=== PATIENT | male | born 1965 | race Caucasian/White ===

== ENCOUNTER 2019-01-01 19:39 | Observation (INO) ==
[2019-01-01 20:34] LABS: Basophils % 0.4 %; Eosinophils # 0.2 K/mcL (0.0-0.6); Eosinophils % 2.8 %; Hematocrit 45.5 % (37.5-50.1); Hemoglobin 15.1 g/dL (12.9-16.9); Immature Granulocytes % 0.5 % (0-4); Lymphocytes # 2.5 K/mcL (0.6-4.6); Lymphocytes % 30.3 %; Mean Corpuscular HGB Conc 33.2 g/dL (31.6-35.5); Mean Corpuscular Volume 99.3 fL (83.0-100.0); Mean Platelet Volume 9.5 fL (9.4-12.4); Monocytes # 0.6 K/mcL (0.0-1.3); Monocytes % 6.9 %; Platelet Count 244 K/mcL (140-400); Red Blood Count 4.58 M/mcL (4.19-5.50); Red Cell Distribution Width 13.5 % (11.5-14.5); Segmented Neutrophils % 59.1 %; White Blood Count 8.4 K/mcL (4.3-11.1)
[2019-01-01 20:56] LABS: Acetaminophen < 10 mcg/mL (10-20); Alanine Aminotransferase 16 Units/L (7-52); Albumin 4.4 g/dL (3.5-5.7); Albumin/Globulin Ratio 1.3 (1.1-2.2); Alkaline Phosphatase 109 Units/L (34-104); Aspartate Amino Transferase 29 Units/L (13-39); BUN/Creatinine Ratio 8 (6-26); Bilirubin,Total 0.5 mg/dL (0.3-1.0); Blood Urea Nitrogen 6 mg/dL (6-20); Calcium 9.4 mg/dL (8.6-10.3); Carbon Dioxide 21 mEq/L (23-29); Chloride 91 mEq/L (98-107); Ethanol 202 mg/dL (Less than 10); Globulin 3.4 g/dL (2.4-3.5); Glucose 79 mg/dL (70-105); Osmolality,Calculated 263 (280-300); Salicylate 15.3 mg/dL (15.0-30.0); Sodium 128 mEq/L (136-145); Total Protein 7.8 g/dL (6.4-8.9); Troponin I < 0.03 ng/mL (< 0.04); eGFR For African Americans > 60 (> 60); eGFR For Non-African Americans > 60 (> 60)
[2019-01-01 21:02] LABS: Bilirubin,Urine Negative (Negative); Blood,Urine Negative (Negative); Clarity,Urine Clear (Clear); Color,Urine Yellow (Yellow); Glucose,Urine (UA) Normal (Normal); Ketones,Urine Negative (Negative); Leukocyte Esterase,Urine Negative (Negative); Nitrite,Urine Negative (Negative); Protein,Urine Trace mg/dL (Neg-Trace); Specific Gravity,Urine 1.006 (1.010-1.025); Urobilinogen,Urine Normal (Normal)
[2019-01-01 21:11] LABS: Amphetamine Screen,Urine Negative ng/mL (Cutoff=1000); Barbiturate Screen,Urine Negative ng/mL (Cutoff=200); Benzodiazepines Screen,Urine Negative ng/mL (Cutoff=200); Cannabinoid Screen,Urine Negative ng/mL (Cutoff = 50); Cocaine Screen,Urine Negative ng/mL (Cutoff= 300); Opiate Screen,Urine Negative ng/mL (Cutoff=300); Phencyclidine Screen,Urine Negative ng/mL (Cutoff=25)
[2019-01-01] MEDS ORDERED: 0.9 % Sodium Chloride 1,000 ML IVC SCH (22:45)
[2019-01-01] MEDS ORDERED: *HR* LORazepam 2 MG/ML VIAL IVP PRN ×2 (22:45)
[2019-01-01] MEDS ORDERED: *HR* Promethazine 25 MG/ML VIAL IVP PRN (22:45)
[2019-01-02] MEDS ORDERED: Acetaminophen 325 MG TABLET PO SCH
[2019-01-02] MEDS ORDERED: Acetaminophen 325 MG TABLET PO PRN (00:31)
[2019-01-02] MEDS: *HR* Heparin 5,000 UNIT/ML VIAL SQ SCH ×2 (05:08→16:57)
[2019-01-02 07:49] LABS: BUN/Creatinine Ratio 8 (6-26); Blood Urea Nitrogen 6 mg/dL (6-20); Calcium 9.2 mg/dL (8.6-10.3); Carbon Dioxide 24 mEq/L (23-29); Chloride 101 mEq/L (98-107); Glucose 103 mg/dL (70-105); Magnesium 1.6 mg/dL (1.6-2.6); Osmolality,Calculated 280 (280-300); Sodium 136 mEq/L (136-145); eGFR For African Americans > 60 (> 60); eGFR For Non-African Americans > 60 (> 60)
[2019-01-02] MEDS: Carbidopa/Levodopa ER 50/200 TABLET PO SCH ×2 (07:56→20:15)
[2019-01-02] MEDS: Sucralfate 1 GM TABLET PO SCH ×4 (07:57→20:15)
[2019-01-02] MEDS: Folic Acid 1 MG TABLET PO SCH (07:57)
[2019-01-02] MEDS: Thiamine (B-1) 100 MG TABLET PO SCH (07:57)
[2019-01-02] MEDS: Vitamin B Complex/Vit C/Vit E 1 EACH TABLET PO SCH (07:57)
[2019-01-02] MEDS: amLODIPine 5 MG TABLET PO SCH (07:57)
[2019-01-03] MEDS: *HR* Heparin 5,000 UNIT/ML VIAL SQ SCH ×2 (06:24→16:48)
[2019-01-03] MEDS: Vitamin B Complex/Vit C/Vit E 1 EACH TABLET PO SCH (08:10)
[2019-01-03] MEDS: Folic Acid 1 MG TABLET PO SCH (08:10)
[2019-01-03] MEDS: Sucralfate 1 GM TABLET PO SCH ×4 (08:10→19:52)
[2019-01-03] MEDS: amLODIPine 5 MG TABLET PO SCH (08:10)
[2019-01-03] MEDS: Thiamine (B-1) 100 MG TABLET PO SCH (08:10)
[2019-01-03] MEDS: Carbidopa/Levodopa ER 50/200 TABLET PO SCH ×2 (08:10→19:51)
[2019-01-03 08:33] LABS: Basophils % 0.4 %; Eosinophils # 0.2 K/mcL (0.0-0.6); Eosinophils % 3.1 %; Hematocrit 44.9 % (37.5-50.1); Immature Granulocytes % 0.4 % (0-4); Lymphocytes # 1.4 K/mcL (0.6-4.6); Lymphocytes % 20.2 %; Mean Corpuscular HGB Conc 33.4 g/dL (31.6-35.5); Mean Corpuscular Hemoglobin 33.2 pg (28.0-33.3); Mean Corpuscular Volume 99.3 fL (83.0-100.0); Mean Platelet Volume 9.8 fL (9.4-12.4); Monocytes # 0.6 K/mcL (0.0-1.3); Monocytes % 9.3 %; Neutrophils # 4.6 K/mcL (1.6-8.9); Platelet Count 217 K/mcL (140-400); Red Blood Count 4.52 M/mcL (4.19-5.50); Red Cell Distribution Width 13.3 % (11.5-14.5); Segmented Neutrophils % 66.6 %; White Blood Count 6.9 K/mcL (4.3-11.1)
[2019-01-03 08:50] LABS: BUN/Creatinine Ratio 11 (6-26); Blood Urea Nitrogen 8 mg/dL (6-20); Calcium 9.4 mg/dL (8.6-10.3); Carbon Dioxide 26 mEq/L (23-29); Chloride 96 mEq/L (98-107); Glucose 111 mg/dL (70-105); Osmolality,Calculated 275 (280-300); Potassium 3.9 mEq/L (3.5-5.1); Sodium 133 mEq/L (136-145); eGFR For African Americans > 60 (> 60); eGFR For Non-African Americans > 60 (> 60)
[2019-01-03 15:07] LABS: Vitamin B12 226 pg/mL (250-1100)
[2019-01-03 16:45] LABS: Folate > 22.3 ng/mL (3.0-16.0)
[2019-01-04] MEDS: *HR* Heparin 5,000 UNIT/ML VIAL SQ SCH ×2 (05:11→17:35)
[2019-01-04 06:26] LABS: Basophils % 0.3 %; Eosinophils # 0.2 K/mcL (0.0-0.6); Hematocrit 44.3 % (37.5-50.1); Hemoglobin 14.5 g/dL (12.9-16.9); Immature Granulocytes % 0.5 % (0-4); Lymphocytes # 1.7 K/mcL (0.6-4.6); Lymphocytes % 21.6 %; Mean Corpuscular HGB Conc 32.7 g/dL (31.6-35.5); Mean Corpuscular Volume 100.7 fL (83.0-100.0); Mean Platelet Volume 10.5 fL (9.4-12.4); Monocytes # 0.7 K/mcL (0.0-1.3); Monocytes % 9.4 %; Neutrophils # 5.1 K/mcL (1.6-8.9); Platelet Count 206 K/mcL (140-400); Red Cell Distribution Width 13.3 % (11.5-14.5); Segmented Neutrophils % 65.2 %; White Blood Count 7.9 K/mcL (4.3-11.1)
[2019-01-04 06:42] LABS: BUN/Creatinine Ratio 10 (6-26); Blood Urea Nitrogen 8 mg/dL (6-20); Calcium 9.4 mg/dL (8.6-10.3); Carbon Dioxide 26 mEq/L (23-29); Chloride 97 mEq/L (98-107); Glucose 103 mg/dL (70-105); Osmolality,Calculated 271 (280-300); Potassium 3.6 mEq/L (3.5-5.1); Sodium 131 mEq/L (136-145); eGFR For African Americans > 60 (> 60); eGFR For Non-African Americans > 60 (> 60)
[2019-01-04] MEDS: Sucralfate 1 GM TABLET PO SCH ×4 (08:07→20:13)
[2019-01-04] MEDS: amLODIPine 5 MG TABLET PO SCH (08:07)
[2019-01-04] MEDS: Vitamin B Complex/Vit C/Vit E 1 EACH TABLET PO SCH (08:07)
[2019-01-04] MEDS: Carbidopa/Levodopa ER 50/200 TABLET PO SCH ×2 (08:07→20:13)
[2019-01-04] MEDS: Thiamine (B-1) 100 MG TABLET PO SCH (08:07)
[2019-01-04] MEDS: Folic Acid 1 MG TABLET PO SCH (08:10)
[2019-01-05] MEDS: *HR* Heparin 5,000 UNIT/ML VIAL SQ SCH (05:52)
[2019-01-05 07:17] LABS: BUN/Creatinine Ratio 10 (6-26); Blood Urea Nitrogen 8 mg/dL (6-20); Calcium 9.5 mg/dL (8.6-10.3); Carbon Dioxide 25 mEq/L (23-29); Chloride 97 mEq/L (98-107); Glucose 102 mg/dL (70-105); Osmolality,Calculated 271 (280-300); Sodium 131 mEq/L (136-145); eGFR For African Americans > 60 (> 60); eGFR For Non-African Americans > 60 (> 60)
[2019-01-05 08:10] VITALS: BP 143/89
[2019-01-05] MEDS ORDERED: Cyanocobalamin (B-12) 1,000 MCG TABLET PO SCH (09:00)
[2019-01-05] MEDS: Thiamine (B-1) 100 MG TABLET PO SCH (09:04)
[2019-01-05] MEDS: Vitamin B Complex/Vit C/Vit E 1 EACH TABLET PO SCH (09:04)
[2019-01-05] MEDS: Sucralfate 1 GM TABLET PO SCH (09:04)
[2019-01-05] MEDS: amLODIPine 5 MG TABLET PO SCH (09:04)
[2019-01-05] MEDS: Folic Acid 1 MG TABLET PO SCH (09:04)
[2019-01-05] MEDS: Carbidopa/Levodopa ER 50/200 TABLET PO SCH (09:04)
== END 2019-01-05 12:56 | DRG 861 ==
LOC: EMEROOARM 19:39 → 3BNU 19:39
PROVIDERS: ADMIT Internal Medicine; ATTEND Internal Medicine

== ENCOUNTER 2019-03-05 15:39 | Inpatient (IN) ==
[2019-03-05] MEDS ORDERED: Piperacillin/Tazobactam 3.375 GM in Water for inj. (sterile) 20 ML IVP ONE (15:49)
[2019-03-05] MEDS ORDERED: 0.9 % Sodium Chloride 1,000 ML IVC ONE ×3 (15:49→21:21)
--- NOTE | 2019-03-05 15:57 | Emergency Department Note ---
Disposition Clinical Impression: Hyponatremia Cellulitis Qualifiers: Site of cellulitis: extremity Site of cellulitis of extremity: lower extremity Laterality: left Qualified Code(s): L03.116 - Cellulitis of left lower limb Disposition: Home, Self-Care Condition: Fair Referrals: NONE,PCP [Primary Care Provider] - Forms: ED Satisfaction Letter Time of Disposition: 19:04 Extremity Problem HPI - General Chief complaint: ED Extremity Problem,Nontraumatic Stated complaint: left foot pain Time Seen by Provider: 03/05/19 15:48 Source: EMS Limitations: no limitations Nursing Notes Reviewed: Yes Vital Signs Reviewed: Yes - History of Present Illness HPI Narrative: Patient is a 53-year-old male who is presenting [facility] for left foot infection. Patient states that he started to notice a small lump/mosquito type bite on his foot approximately one week ago, progressively worsening the past week, states that when his sock was taken off today there is note by family that there were maggots on his feet, states that the redness has significantly worsened over the past 2 nights with increased pain. He denies any trauma. He states that he does not have diabetes. He denies being on a recent antibiotics. He denies fevers or chills. Patient does have history of Parkinson's disease. No history of similar infections in the past. Pain Scale: 10 - Related Data Home Medications Medication Instructions Recorded Confirmed Acetaminophen [Tylenol] 650 mg PO Q6HR PRN 01/01/19 01/03/19 Carbidopa/Levodopa ER 50/200 0.5 tab PO BID 01/01/19 01/03/19 [Sinemet ER 50-200 Tab] Omeprazole [PriLOSEC] 20 mg PO BID 01/01/19 01/03/19 Potassium Chloride [K-Tab ER] 20 meq PO DAILY 01/01/19 01/03/19 Sucralfate [Carafate] 1 gm PO QID 01/01/19 01/03/19 Previous Rx's Medication Instructions Recorded Cyanocobalamin (B-12) [Vitamin B12] 1,000 mcg PO DAILY #30 tablet 01/05/19 Folic Acid 1 mg PO DAILY #30 tablet 01/05/19 Thiamine (B-1) [Vitamin B-1] 100 mg PO DAILY #30 tablet 01/05/19 Vitamin B Complex/Vit C/Vit E 1 each PO DAILY #30 tablet 01/05/19 [Stresstab] Allergies Allergy/AdvReac Type Severity Reaction Status Date / Time No Known Allergies Allergy Verified 08/14/18 10:47 All systems ED: reviewed and negative except as stated. Review of Systems: As Per HPI Constitutional: Denies: fever, chills ENT ED: Denies: congestion Cardiovascular: Denies: chest pain, palpitations Respiratory: Denies: cough, dyspnea, wheezes Gastrointestinal: Denies: abdominal pain, nausea, vomiting Musculoskeletal: Reports: other (Affirms left foot pain). Denies: back pain Integumentary: Reports: lesions. Denies: rash Neurological: Denies: headache, weakness, confusion Endocrine: Denies: fatigue Past Medical History - Past Medical History Medical history: Reports: CVA, GERD, hypertension Surgical history: Reports: cholecystectomy Psychiatric history: Reports: no psych history - Social History Smoking Status: Current every day smoker Smokeless Tobacco Status: Yes Alcohol use: Reports: heavy, recent Drug use: Reports: marijuana Physical Exam - General Limitations: no limitations General appearance: alert - Head Head exam: atraumatic, normocephalic, normal inspection - Eye Eye exam: Present: normal appearance, PERRL, EOMI - ENT ENT exam: normal exam, normal oropharynx, mucous membranes moist - Neck Neck exam: Present: normal inspection, full ROM, trachea midline - Chest Chest inspection: Present: normal inspection, symmetric chest wall rise - Respiratory Respiratory exam: Present: normal lung sounds bilaterally - Cardiovascular Cardiovascular exam: Present: regular rate, tachycardia - Abdominal Exam Abdominal exam: Present: soft, Non-Tender. Absent: tenderness, distention, guarding, rebound, rigidity - Extremities Exam Extremities exam: Present: normal capillary refill, other (Patient has left foot swelling, erythema and extensive skin changes overlying the dorsal aspect of the left foot, some purulent drainage the top of the foot, no bulla formation at this time, no necrotic tissue is noted, patient is able to move his feet, wiggle his toes, does have sensation, pulses distally are intact) - Neurological Exam Neurological exam: Present: alert, oriented X3 - Psychiatric Psychiatric exam: Present: normal affect, normal mood - Skin Skin exam: Absent: rash, pallor Course Vital Signs Temperature 98.5 F 03/05/19 15:44 Pulse Rate 101 03/05/19 15:44 Respiratory Rate 18 03/05/19 15:44 Blood Pressure 175/97 03/05/19 15:44 O2 Sat by Pulse Oximetry 99 03/05/19 15:44 Temperature 98.5 F 03/05/19 15:44 Pulse Rate 107 03/05/19 18:30 Respiratory Rate 20 03/05/19 18:30 Blood Pressure 174/97 03/05/19 18:30 O2 Sat by Pulse Oximetry 99 03/05/19 18:30 Oxygen Delivery Oxygen Delivery Room Air Extremity Problem, Nontraumati - [facility] Narrative Medical decision making narrative: Patient is a 53-year-old male whose presenting with left foot skin changes. Patient with known history of Parkinson's disease. On arrival, patient is alert and oriented 3, he has known history of alcoholism, currently in intoxicated but with a GCS of 15 and in no acute distress, no history of seizures. Patient states that he noticed personally one week ago skin changes to his left foot had that have significant only worsened over the past few days. He denies any fevers or chills. On arrival, patient is tachycardic but he is afebrile and normotensive. Wound cultures were obtained. Blood cultures were obtained. Laboratory work including CBC and BMP were obtained. X-ray was obtained which show soft tissue swelling without signs of fracture, osteomyelitis or gaseous formation. Patient was started on vancomycin and Zosyn. He was given a total of 1 L normal saline while here in the ER. True work was reviewed, showing hyponatremia 118, this will also be resent as patient has no remote history of hyponatremia this significant. Patient with no significant altered mental status or seizure, patient is intoxicated secondary to alcoholism, however this is not out of his usual. Patient is oriented 3. Patient does not have a leukocytosis. Patient does have a lactic acidosis of 3.8. At this point in time secondary to the hyponatremia, urine labs will be ordered. Patient does have an elevated anion gap with lactic acidosis, given this concern with the hyponatremia, further laboratory work including a VBG, methanol, ethanol, salicylate and Tylenol will be performed. Patient does not have an acidosis. Serum ketones are elevated, suspect that history of ketones is secondary to chronic wasting requiring ketosis. Given patient's extensive cellulitis on the left foot and hyponatremic, the patient will be admitted further observation and treatment. Patient agrees to disposition of admission. - Medical Records Medical records reviewed: Yes I reviewed the patient's medical records. - Lab Data Lab results reviewed: Yes I reviewed the patient's lab results. Result diagrams: 03/05/19 15:59 03/05/19 17:07 Lab Results 03/05/19 03/05/19 03/05/19 Range/Units 15:59 15:59 15:59 WBC 10.8 (4.3-11.1) K/mcL RBC 4.08 L (4.19-5.50) M/mcL Hgb 13.6 (12.9-16.9) g/dL Hct 38.5 (37.5-50.1) % MCV 94.4 (83.0-100.0) fL MCH 33.3 (28.0-33.3) pg MCHC 35.3 (31.6-35.5) g/dL RDW 12.3 (11.5-14.5) % Plt Count 241 (140-400) K/mcL MPV 9.2 L (9.4-12.4) fL Immature Gran % 0.6 (0-4) % Seg Neutrophils % 75.1 % Lymphocytes % 11.6 % Monocytes % 11.7 % Eosinophils % 0.7 % Basophils % 0.3 % Neutrophils # 8.1 (1.6-8.9) K/mcL Lymphocytes # 1.3 (0.6-4.6) K/mcL Monocytes # 1.3 (0.0-1.3) K/mcL Eosinophils # 0.1 (0.0-0.6) K/mcL Basophils # 0.0 (0.0-0.2) K/mcL VBG pH (7.32-7.42) pH Units VBG pCO2 (41-51) mmHg VBG pO2 (25-50) mmHg VBG HCO3 (21-27) mEq/L Sodium 118 L* (136-145) mEq/L Potassium 3.5 (3.5-5.1) mEq/L Chloride 78 L (98-107) mEq/L Carbon Dioxide 21 L (23-29) mEq/L BUN 10 (6-20) mg/dL Creatinine 0.75 (0.70-1.30) mg/dL Est GFR ( Amer) > 60 (> 60) Est GFR (Non-Af Amer) > 60 (> 60) BUN/Creatinine Ratio 13 (6-26) Glucose 90 (70-105) mg/dL Calculated Osmolality 245 L (280-300) Lactic Acid 3.8 H (0.5-2.2) mmol/L Calcium 9.1 (8.6-10.3) mg/dL Beta-Hydroxybutyric Acd (0.02-0.27) mmol/L TSH 2.226 (0.340-5.600) mcIU/mL Random Cortisol 18.5 mcg/dl Urine Color (Yellow) Urine Clarity (Clear) Urine pH (5.0-8.0) pH Units Ur Specific [place] (1.010-1.025) Urine Protein (Neg-Trace) mg/dL Urine Glucose (UA) (Normal) mg/dL Urine Ketones (Negative) mg/dL Urine Blood (Negative) Urine Nitrite (Negative) Urine Bilirubin (Negative) Urine Urobilinogen (Normal) mg/dL Ur Leukocyte Esterase (Negative) Urine Microscopic RBC (0-3) per hpf Urine Microscopic WBC (0-3) per hpf Ur Squamous Epith Cells (None-Few) per lpf Urine Bacteria (None-Few) per hpf Hyaline Casts (None-Few) per lpf Ur Culture Indicated? (NO) Salicylates (15.0-30.0) mg/dL Acetaminophen (10-20) mcg/mL Ethyl Alcohol (Less than 10) mg/dL 03/05/19 03/05/19 03/05/19 Range/Units 16:45 17:07 18:05 WBC (4.3-11.1) K/mcL RBC (4.19-5.50) M/mcL Hgb (12.9-16.9) g/dL Hct (37.5-50.1) % MCV (83.0-100.0) fL MCH (28.0-33.3) pg MCHC (31.6-35.5) g/dL RDW (11.5-14.5) % Plt Count (140-400) K/mcL MPV (9.4-12.4) fL Immature Gran % (0-4) % Seg Neutrophils % % Lymphocytes % % Monocytes % % Eosinophils % % Basophils % % Neutrophils # (1.6-8.9) K/mcL Lymphocytes # (0.6-4.6) K/mcL Monocytes # (0.0-1.3) K/mcL Eosinophils # (0.0-0.6) K/mcL Basophils # (0.0-0.2) K/mcL VBG pH (7.32-7.42) pH Units VBG pCO2 (41-51) mmHg VBG pO2 (25-50) mmHg VBG HCO3 (21-27) mEq/L Sodium 120 L* (136-145) mEq/L Potassium (3.5-5.1) mEq/L Chloride (98-107) mEq/L Carbon Dioxide (23-29) mEq/L BUN (6-20) mg/dL Creatinine (0.70-1.30) mg/dL Est GFR ( Amer) (> 60) Est GFR (Non-Af Amer) (> 60) BUN/Creatinine Ratio (6-26) Glucose (70-105) mg/dL Calculated Osmolality (280-300) Lactic Acid (0.5-2.2) mmol/L Calcium (8.6-10.3) mg/dL Beta-Hydroxybutyric Acd (0.02-0.27) mmol/L TSH (0.340-5.600) mcIU/mL Random Cortisol mcg/dl Urine Color Dark Yellow (Yellow) Urine Clarity Clear (Clear) Urine pH 5.5 (5.0-8.0) pH Units Ur Specific [place] 1.014 (1.010-1.025) Urine Protein 30 H (Neg-Trace) mg/dL Urine Glucose (UA) Normal (Normal) mg/dL Urine Ketones 15 H (Negative) mg/dL Urine Blood Negative (Negative) Urine Nitrite Negative (Negative) Urine Bilirubin Negative (Negative) Urine Urobilinogen Normal (Normal) mg/dL Ur Leukocyte Esterase Negative (Negative) Urine Microscopic RBC 0-3 (0-3) per hpf Urine Microscopic WBC 0-3 (0-3) per hpf Ur Squamous Epith Cells Many H (None-Few) per lpf Urine Bacteria None Seen (None-Few) per hpf Hyaline Casts None Seen (None-Few) per lpf Ur Culture Indicated? NO (NO) Salicylates < 2.5 L (15.0-30.0) mg/dL Acetaminophen < 10 L (10-20) mcg/mL Ethyl Alcohol 30 H (Less than 10) mg/dL 03/05/19 03/05/19 Range/Units 18:05 18:18 WBC (4.3-11.1) K/mcL RBC (4.19-5.50) M/mcL Hgb (12.9-16.9) g/dL Hct (37.5-50.1) % MCV (83.0-100.0) fL MCH (28.0-33.3) pg MCHC (31.6-35.5) g/dL RDW (11.5-14.5) % Plt Count (140-400) K/mcL MPV (9.4-12.4) fL Immature Gran % (0-4) % Seg Neutrophils % % Lymphocytes % % Monocytes % % Eosinophils % % Basophils % % Neutrophils # (1.6-8.9) K/mcL Lymphocytes # (0.6-4.6) K/mcL Monocytes # (0.0-1.3) K/mcL Eosinophils # (0.0-0.6) K/mcL Basophils # (0.0-0.2) K/mcL VBG pH 7.42 (7.32-7.42) pH Units VBG pCO2 33 L (41-51) mmHg VBG pO2 106 H (25-50) mmHg VBG HCO3 21 (21-27) mEq/L Sodium (136-145) mEq/L Potassium (3.5-5.1) mEq/L Chloride (98-107) mEq/L Carbon Dioxide (23-29) mEq/L BUN (6-20) mg/dL Creatinine (0.70-1.30) mg/dL Est GFR ( Amer) (> 60) Est GFR (Non-Af Amer) (> 60) BUN/Creatinine Ratio (6-26) Glucose (70-105) mg/dL Calculated Osmolality (280-300) Lactic Acid (0.5-2.2) mmol/L Calcium (8.6-10.3) mg/dL Beta-Hydroxybutyric Acd > 2.00 H (0.02-0.27) mmol/L TSH (0.340-5.600) mcIU/mL Random Cortisol mcg/dl Urine Color (Yellow) Urine Clarity (Clear) Urine pH (5.0-8.0) pH Units Ur Specific [place] (1.010-1.025) Urine Protein (Neg-Trace) mg/dL Urine Glucose (UA) (Normal) mg/dL Urine Ketones (Negative) mg/dL Urine Blood (Negative) Urine Nitrite (Negative) Urine Bilirubin (Negative) Urine Urobilinogen (Normal) mg/dL Ur Leukocyte Esterase (Negative) Urine Microscopic RBC (0-3) per hpf Urine Microscopic WBC (0-3) per hpf Ur Squamous Epith Cells (None-Few) per lpf Urine Bacteria (None-Few) per hpf Hyaline Casts (None-Few) per lpf Ur Culture Indicated? (NO) Salicylates (15.0-30.0) mg/dL Acetaminophen (10-20) mcg/mL Ethyl Alcohol (Less than 10) mg/dL - Radiology Data Radiology results reviewed: Yes I reviewed the patient's radiology results. Foot X-Ray 03/05/19 15:51 IMPRESSION: 1. Circumferential soft tissue swelling of the leg and ankle. No associated acute osseous abnormality. 2. No evidence of soft tissue gas or radiopaque foreign body. D/ / Tres Lowery MD / Tres Lowery MD Interpreting Provider: Tres Lowery MD Tibia/Fibula X-Ray 03/05/19 15:51 IMPRESSION: 1. Circumferential soft tissue swelling of the leg and ankle. No associated acute osseous abnormality. 2. No evidence of soft tissue gas or radiopaque foreign body. D/ / Tres Lowery MD / Tres Lowery MD Interpreting Provider: Tres Lowery MD Attestation Statement - Attestation Attestation: I, Brian Harmon DO, examined this patient [id number] and my medical decision-making was reviewed with Dr. Rosa Sainz , Resident Physician. I agree with the documented findings, disposition and treatment plan as described except to the extent set forth below. I personally supervised and was present for the magana/critical portions of the procedures completed by the resident documented below. Please see my progress notes for details.
[2019-03-05 16:11] LABS: Basophils % 0.3 %; Eosinophils # 0.1 K/mcL (0.0-0.6); Eosinophils % 0.7 %; Hematocrit 38.5 % (37.5-50.1); Hemoglobin 13.6 g/dL (12.9-16.9); Immature Granulocytes % 0.6 % (0-4); Lymphocytes # 1.3 K/mcL (0.6-4.6); Lymphocytes % 11.6 %; Mean Corpuscular HGB Conc 35.3 g/dL (31.6-35.5); Mean Corpuscular Hemoglobin 33.3 pg (28.0-33.3); Mean Corpuscular Volume 94.4 fL (83.0-100.0); Mean Platelet Volume 9.2 fL (9.4-12.4); Monocytes # 1.3 K/mcL (0.0-1.3); Monocytes % 11.7 %; Neutrophils # 8.1 K/mcL (1.6-8.9); Platelet Count 241 K/mcL (140-400); Red Blood Count 4.08 M/mcL (4.19-5.50); Red Cell Distribution Width 12.3 % (11.5-14.5); Segmented Neutrophils % 75.1 %; White Blood Count 10.8 K/mcL (4.3-11.1)
[2019-03-05] MEDS ORDERED: Piperacillin/Tazobactam 3.375 GM in 0.9 % Sodium Chloride Mini Bag 100 ML IVPB ONE (16:14)
[2019-03-05 16:36] LABS: BUN/Creatinine Ratio 13 (6-26); Blood Urea Nitrogen 10 mg/dL (6-20); Calcium 9.1 mg/dL (8.6-10.3); Carbon Dioxide 21 mEq/L (23-29); Chloride 78 mEq/L (98-107); Glucose 90 mg/dL (70-105); Osmolality,Calculated 245 (280-300); Potassium 3.5 mEq/L (3.5-5.1); Sodium 118 mEq/L (136-145); eGFR For African Americans > 60 (> 60); eGFR For Non-African Americans > 60 (> 60)
--- NOTE | 2019-03-05 16:57 | Emergency Department Note ---
Disposition Clinical Impression: Hyponatremia Cellulitis Qualifiers: Site of cellulitis: extremity Site of cellulitis of extremity: lower extremity Laterality: left Qualified Code(s): L03.116 - Cellulitis of left lower limb Disposition: Admitted As Inpatient Condition: Fair Referrals: NONE,PCP [Primary Care Provider] - Forms: ED Satisfaction Letter Time of Disposition: 19:12 General Adult HPI - General Chief complaint: ED Extremity Problem,Nontraumatic Stated complaint: left foot pain Time Seen by Provider: 03/05/19 15:48 Source: EMS Limitations: no limitations - History of Present Illness Pain Scale: 10 - Related Data Home Medications Medication Instructions Recorded Confirmed Acetaminophen [Tylenol] 650 mg PO Q6HR PRN 01/01/19 01/03/19 Carbidopa/Levodopa ER 50/200 0.5 tab PO BID 01/01/19 01/03/19 [Sinemet ER 50-200 Tab] Omeprazole [PriLOSEC] 20 mg PO BID 01/01/19 01/03/19 Potassium Chloride [K-Tab ER] 20 meq PO DAILY 01/01/19 01/03/19 Sucralfate [Carafate] 1 gm PO QID 01/01/19 01/03/19 Previous Rx's Medication Instructions Recorded Cyanocobalamin (B-12) [Vitamin B12] 1,000 mcg PO DAILY #30 tablet 01/05/19 Folic Acid 1 mg PO DAILY #30 tablet 01/05/19 Thiamine (B-1) [Vitamin B-1] 100 mg PO DAILY #30 tablet 01/05/19 Vitamin B Complex/Vit C/Vit E 1 each PO DAILY #30 tablet 01/05/19 [Stresstab] Allergies Allergy/AdvReac Type Severity Reaction Status Date / Time No Known Allergies Allergy Verified 08/14/18 10:47 Constitutional: Denies: fever, chills ENT ED: Denies: congestion Cardiovascular: Denies: chest pain, palpitations Respiratory: Denies: cough, dyspnea, wheezes Gastrointestinal: Denies: abdominal pain, nausea, vomiting Musculoskeletal: Reports: other (Affirms left foot pain). Denies: back pain Integumentary: Reports: lesions. Denies: rash Neurological: Denies: headache, weakness, confusion Endocrine: Denies: fatigue Past Medical History - Past Medical History Medical history: Reports: CVA, GERD, hypertension Surgical history: Reports: cholecystectomy Psychiatric history: Reports: no psych history - Social History Smoking Status: Current every day smoker Smokeless Tobacco Status: Yes Alcohol use: Reports: heavy, recent Drug use: Reports: marijuana Physical Exam - General Limitations: no limitations General appearance: alert Course Vital Signs Temperature 98.5 F 03/05/19 15:44 Pulse Rate 101 03/05/19 15:44 Respiratory Rate 18 03/05/19 15:44 Blood Pressure 175/97 03/05/19 15:44 O2 Sat by Pulse Oximetry 99 03/05/19 15:44 Temperature 98.5 F 03/05/19 15:44 Pulse Rate 107 03/05/19 18:30 Respiratory Rate 20 03/05/19 18:30 Blood Pressure 174/97 03/05/19 18:30 O2 Sat by Pulse Oximetry 99 03/05/19 18:30 Oxygen Delivery Oxygen Delivery Room Air Medical Decision Making - Lab Data Result diagrams: 03/05/19 15:59 03/05/19 17:07 Lab Results 03/05/19 03/05/19 03/05/19 Range/Units 15:59 15:59 15:59 WBC 10.8 (4.3-11.1) K/mcL RBC 4.08 L (4.19-5.50) M/mcL Hgb 13.6 (12.9-16.9) g/dL Hct 38.5 (37.5-50.1) % MCV 94.4 (83.0-100.0) fL MCH 33.3 (28.0-33.3) pg MCHC 35.3 (31.6-35.5) g/dL RDW 12.3 (11.5-14.5) % Plt Count 241 (140-400) K/mcL MPV 9.2 L (9.4-12.4) fL Immature Gran % 0.6 (0-4) % Seg Neutrophils % 75.1 % Lymphocytes % 11.6 % Monocytes % 11.7 % Eosinophils % 0.7 % Basophils % 0.3 % Neutrophils # 8.1 (1.6-8.9) K/mcL Lymphocytes # 1.3 (0.6-4.6) K/mcL Monocytes # 1.3 (0.0-1.3) K/mcL Eosinophils # 0.1 (0.0-0.6) K/mcL Basophils # 0.0 (0.0-0.2) K/mcL VBG pH (7.32-7.42) pH Units VBG pCO2 (41-51) mmHg VBG pO2 (25-50) mmHg VBG HCO3 (21-27) mEq/L Sodium 118 L* (136-145) mEq/L Potassium 3.5 (3.5-5.1) mEq/L Chloride 78 L (98-107) mEq/L Carbon Dioxide 21 L (23-29) mEq/L BUN 10 (6-20) mg/dL Creatinine 0.75 (0.70-1.30) mg/dL Est GFR ( Amer) > 60 (> 60) Est GFR (Non-Af Amer) > 60 (> 60) BUN/Creatinine Ratio 13 (6-26) Glucose 90 (70-105) mg/dL Calculated Osmolality 245 L (280-300) Lactic Acid 3.8 H (0.5-2.2) mmol/L Calcium 9.1 (8.6-10.3) mg/dL Ammonia (16-53) mcmol/L Beta-Hydroxybutyric Acd (0.02-0.27) mmol/L TSH 2.226 (0.340-5.600) mcIU/mL Random Cortisol 18.5 mcg/dl Urine Color (Yellow) Urine Clarity (Clear) Urine pH (5.0-8.0) pH Units Ur Specific [place] (1.010-1.025) Urine Protein (Neg-Trace) mg/dL Urine Glucose (UA) (Normal) mg/dL Urine Ketones (Negative) mg/dL Urine Blood (Negative) Urine Nitrite (Negative) Urine Bilirubin (Negative) Urine Urobilinogen (Normal) mg/dL Ur Leukocyte Esterase (Negative) Urine Microscopic RBC (0-3) per hpf Urine Microscopic WBC (0-3) per hpf Ur Squamous Epith Cells (None-Few) per lpf Urine Bacteria (None-Few) per hpf Hyaline Casts (None-Few) per lpf Ur Culture Indicated? (NO) Salicylates (15.0-30.0) mg/dL Acetaminophen (10-20) mcg/mL Ethyl Alcohol (Less than 10) mg/dL 03/05/19 03/05/19 03/05/19 Range/Units 16:45 17:07 18:05 WBC (4.3-11.1) K/mcL RBC (4.19-5.50) M/mcL Hgb (12.9-16.9) g/dL Hct (37.5-50.1) % MCV (83.0-100.0) fL MCH (28.0-33.3) pg MCHC (31.6-35.5) g/dL RDW (11.5-14.5) % Plt Count (140-400) K/mcL MPV (9.4-12.4) fL Immature Gran % (0-4) % Seg Neutrophils % % Lymphocytes % % Monocytes % % Eosinophils % % Basophils % % Neutrophils # (1.6-8.9) K/mcL Lymphocytes # (0.6-4.6) K/mcL Monocytes # (0.0-1.3) K/mcL Eosinophils # (0.0-0.6) K/mcL Basophils # (0.0-0.2) K/mcL VBG pH (7.32-7.42) pH Units VBG pCO2 (41-51) mmHg VBG pO2 (25-50) mmHg VBG HCO3 (21-27) mEq/L Sodium 120 L* (136-145) mEq/L Potassium (3.5-5.1) mEq/L Chloride (98-107) mEq/L Carbon Dioxide (23-29) mEq/L BUN (6-20) mg/dL Creatinine (0.70-1.30) mg/dL Est GFR ( Amer) (> 60) Est GFR (Non-Af Amer) (> 60) BUN/Creatinine Ratio (6-26) Glucose (70-105) mg/dL Calculated Osmolality (280-300) Lactic Acid (0.5-2.2) mmol/L Calcium (8.6-10.3) mg/dL Ammonia (16-53) mcmol/L Beta-Hydroxybutyric Acd (0.02-0.27) mmol/L TSH (0.340-5.600) mcIU/mL Random Cortisol mcg/dl Urine Color Dark Yellow (Yellow) Urine Clarity Clear (Clear) Urine pH 5.5 (5.0-8.0) pH Units Ur Specific [place] 1.014 (1.010-1.025) Urine Protein 30 H (Neg-Trace) mg/dL Urine Glucose (UA) Normal (Normal) mg/dL Urine Ketones 15 H (Negative) mg/dL Urine Blood Negative (Negative) Urine Nitrite Negative (Negative) Urine Bilirubin Negative (Negative) Urine Urobilinogen Normal (Normal) mg/dL Ur Leukocyte Esterase Negative (Negative) Urine Microscopic RBC 0-3 (0-3) per hpf Urine Microscopic WBC 0-3 (0-3) per hpf Ur Squamous Epith Cells Many H (None-Few) per lpf Urine Bacteria None Seen (None-Few) per hpf Hyaline Casts None Seen (None-Few) per lpf Ur Culture Indicated? NO (NO) Salicylates < 2.5 L (15.0-30.0) mg/dL Acetaminophen < 10 L (10-20) mcg/mL Ethyl Alcohol 30 H (Less than 10) mg/dL 03/05/19 03/05/19 03/05/19 Range/Units 18:05 18:05 18:18 WBC (4.3-11.1) K/mcL RBC (4.19-5.50) M/mcL Hgb (12.9-16.9) g/dL Hct (37.5-50.1) % MCV (83.0-100.0) fL MCH (28.0-33.3) pg MCHC (31.6-35.5) g/dL RDW (11.5-14.5) % Plt Count (140-400) K/mcL MPV (9.4-12.4) fL Immature Gran % (0-4) % Seg Neutrophils % % Lymphocytes % % Monocytes % % Eosinophils % % Basophils % % Neutrophils # (1.6-8.9) K/mcL Lymphocytes # (0.6-4.6) K/mcL Monocytes # (0.0-1.3) K/mcL Eosinophils # (0.0-0.6) K/mcL Basophils # (0.0-0.2) K/mcL VBG pH 7.42 (7.32-7.42) pH Units VBG pCO2 33 L (41-51) mmHg VBG pO2 106 H (25-50) mmHg VBG HCO3 21 (21-27) mEq/L Sodium (136-145) mEq/L Potassium (3.5-5.1) mEq/L Chloride (98-107) mEq/L Carbon Dioxide (23-29) mEq/L BUN (6-20) mg/dL Creatinine (0.70-1.30) mg/dL Est GFR ( Amer) (> 60) Est GFR (Non-Af Amer) (> 60) BUN/Creatinine Ratio (6-26) Glucose (70-105) mg/dL Calculated Osmolality (280-300) Lactic Acid (0.5-2.2) mmol/L Calcium (8.6-10.3) mg/dL Ammonia 50 (16-53) mcmol/L Beta-Hydroxybutyric Acd > 2.00 H (0.02-0.27) mmol/L TSH (0.340-5.600) mcIU/mL Random Cortisol mcg/dl Urine Color (Yellow) Urine Clarity (Clear) Urine pH (5.0-8.0) pH Units Ur Specific [place] (1.010-1.025) Urine Protein (Neg-Trace) mg/dL Urine Glucose (UA) (Normal) mg/dL Urine Ketones (Negative) mg/dL Urine Blood (Negative) Urine Nitrite (Negative) Urine Bilirubin (Negative) Urine Urobilinogen (Normal) mg/dL Ur Leukocyte Esterase (Negative) Urine Microscopic RBC (0-3) per hpf Urine Microscopic WBC (0-3) per hpf Ur Squamous Epith Cells (None-Few) per lpf Urine Bacteria (None-Few) per hpf Hyaline Casts (None-Few) per lpf Ur Culture Indicated? (NO) Salicylates (15.0-30.0) mg/dL Acetaminophen (10-20) mcg/mL Ethyl Alcohol (Less than 10) mg/dL Attestation Statement - Attestation Attestation: I, Brian Harmno DO, examined this patient [id number] and my medical decision-making was reviewed with Dr. Rosa Sainz , Resident Physician. I agree with the documented findings, disposition and treatment plan as described except to the extent set forth below. I personally supervised and was present for the magana/critical portions of the procedures completed by the resident documented below. Please see my progress notes for details. 53-year-old male presents emergency room for evaluation of left lower extremity swelling redness warmth and skin deterioration. Patient denies any chest pain shortness of breath fevers chills nausea vomiting or diarrhea. He does not have any headache or vision change. Patient is a chronic alcoholic. He denies any other symptoms or complaints. He has not had any trauma or injury. On physical exam the patient is sitting upright in the bed. Lungs are clear heart is regular abdomen is soft. He has no point tenderness guarding rigidity or peritoneal symptoms at this time. He is alert oriented and answering questions appropriately. Patient does admit to alcohol use here today but has no other complaints at this time. EKG was collected, reviewed by myself, documented in the resident physician's note. Patient will have detailed workup looking for cardiac pulmonary or infectious etiology this time. Patient was started on appropriate antibiotics cover for skin denise at this point. Disposition pending full workup and treatment course. See detailed documentation the physical exam, medical intervention, medical decision-making and disposition the resident physician's note. No critical care applied the patient's treatment course at this time. 1715 Patient has a sodium of 118. Repeat laboratory evaluation will be collected considering this is a new finding for him is never had low sodium in the past. Patient has been provided with appropriate antibiotics and imaging modalities are all otherwise unremarkable. The remainder of his labs are stable. The hospitalist has been paged at this time for admission and the labs will be collected for review. Patient is otherwise in no distress showing no acute signs of mental status related abnormality or concern for profound electrolyte abnormalities. 1900 Patient has negative labs at this time for acute alcoholic ketosis. Lactic acid and Hydroxybutyric were elevated but otherwise his pH is normal. Patient will be admitted for cellulitis and alcohol related issues. Patient is stable.
[2019-03-05 17:17] LABS: Bilirubin,Urine Negative (Negative); Blood,Urine Negative (Negative); Clarity,Urine Clear (Clear); Color,Urine Dark Yellow (Yellow); Glucose,Urine (UA) Normal (Normal); Ketones,Urine 15 mg/dL (Negative); Leukocyte Esterase,Urine Negative (Negative); Nitrite,Urine Negative (Negative); PH,Urine 5.5 pH Units (5.0-8.0); Protein,Urine 30 mg/dL (Neg-Trace); Specific Gravity,Urine 1.014 (1.010-1.025); Urobilinogen,Urine Normal (Normal)
[2019-03-05 17:20] LABS: Bacteria,Urine None Seen per hpf (None-Few); Hyaline Casts,Urine None Seen per lpf (None-Few); RBC,Urine 0-3 per hpf (0-3); Squamous Epithelial Cell,Urine Many per lpf (None-Few); WBC,Urine 0-3 per hpf (0-3)
[2019-03-05 17:47] LABS: Sodium 120 mEq/L (136-145)
[2019-03-05 18:19] LABS: Thyroid Stimulating Hormone 2.226 mcIU/mL (0.340-5.600)
[2019-03-05 18:19] LABS: Ethanol 30 mg/dL (Less than 10)
[2019-03-05] MEDS ORDERED: Ondansetron 4 MG/2 ML VIAL IVP ONE (18:25)
[2019-03-05 18:31] LABS: VBG HCO3 21 mEq/L (21-27); VBG PCO2 33 mmHg (41-51); VBG PH 7.42 pH Units (7.32-7.42); VBG PO2 106 mmHg (25-50)
[2019-03-05 18:52] LABS: Acetaminophen < 10 mcg/mL (10-20); Salicylate < 2.5 mg/dL (15.0-30.0)
[2019-03-05] MEDS ORDERED: Naloxone 0.4 MG/ML INJ IVP PRN (21:03)
[2019-03-05] MEDS ORDERED: Ondansetron 4 MG/2 ML VIAL IVP PRN (21:03)
[2019-03-05] MEDS ORDERED: *HR* LORazepam 2 MG/ML VIAL IVP PRN ×3 (21:15)
--- NOTE | 2019-03-05 21:28 | Internal Med History&Physical ---
Date of Encounter: 03/05/19 Time of Encounter: 20:08 Internal Medicine - H&P: HPI Chief complaint: Cellulitis, hyponatremia Admitted From: Emergency Dept Plans for Post Hospital Care: Home History of present illness: Mr. Vaughan is a 53 year old male Patient presented to the emergency department with pain in his left foot. He says that he had a wound that has progressively worsened for the last week. He is not aware of any injuries that instigated this, but he says that there were maggots on his foot earlier today. He does not have a history of diabetes. He does have a history of Parkinson's disease. Ambulance was called to transport him to the hospital for further evaluation. Emergency department patient's initial vital signs: Temperature 98.5, pulse 101, respiratory rate 18, blood pressure 175/97, O2 saturation 99% on room air. CBC: Within normal limits BMP notable for a sodium of 118, and on repeat 120. Initial lactic acid 3.8, improved to 1.2 on repeat after IV fluids Ammonia 50 Beta hydroxybutyric acid greater than 2.00 Urinalysis negative for infection Urine tox screen negative for Tylenol and salicylates. Blood alcohol level 30 Left foot, tibia and fibula x-ray showed circumferential soft tissue swelling of the leg and ankle, no associated acute osseous abnormality. There is no evidenc e of soft tissue gas or radiopaque foreign body EKG not performed Emergency department wound and blood cultures were drawn. Patient was given an IV fluid bolus, but this was stopped due to concerns over correction of his sodium. Patient was also started on vancomycin and Zosyn. He was admitted to the hospital for further management. Upon my evaluation, patient is resting comfortably in hospital bed in no acute distress. He denies chest pain, abdominal pain, diarrhea and constipation he has had an episode of vomiting, which he denies seeing any blood. He is also denying any dark stools or bright red blood per rectum. He has left foot pain and shortness of breath. He admits to drinking 8-9 beers daily, his last beer was this morning and he only had 1. He denies other drugs but occasionally smokes marijuana. He is a pack per day smoker. He has family history of stroke in his father, and his mother had lung cancer. Past Med Surg Social Fam HX - Past Medical History Medical history: CVA, GERD, hypertension Additional medical history: chronic problems with leg function, parkinsons, patient reports CVA deficits of slurring his words Psychiatric history: no psych history - Past Surgical History Surgical History: cholecystectomy Additional surgical history: left shoulder - Social History Smoking Status: Current every day smoker Smokeless Tobacco Status: Yes Alcohol use: heavy, recent Drug use: marijuana - Family History Mother Adopted: No Family Member Ethnicity: Non- Living Status: Hx Family Cancer: Yes (Lung) Father Adopted: No Living Status: Hx Family Neurologic Disorders: Yes (CVA) Internal Medicine - H&P: Meds Acetaminophen [Tylenol] 650 mg PO Q6HR PRN 01/01/19 [History] Carbidopa/Levodopa ER 50/200 [Sinemet ER 50-200 Tab] 0.5 tab PO BID 01/01/19 [History] Omeprazole [PriLOSEC] 20 mg PO BID 01/01/19 [History] Potassium Chloride [K-Tab ER] 20 meq PO DAILY 01/01/19 [History] Sucralfate [Carafate] 1 gm PO QID 01/01/19 [History] Cyanocobalamin (B-12) [Vitamin B12] 1,000 mcg PO DAILY #30 tablet 01/05/19 [Rx] Folic Acid 1 mg PO DAILY #30 tablet 01/05/19 [Rx] Thiamine (B-1) [Vitamin B-1] 100 mg PO DAILY #30 tablet 01/05/19 [Rx] Vitamin B Complex/Vit C/Vit E [Stresstab] 1 each PO DAILY #30 tablet 01/05/19 [Rx] Allergy/AdvReac Type Severity Reaction Status Date / Time No Known Allergies Allergy Verified 08/14/18 10:47 All Systems PM: A 10-system review of systems was performed and is negative for pertinent findings except as documented above in the HPI. - Constitutional Vitals: Temp Pulse Resp BP Pulse Ox 99.1 F 103 20 137/83 97 03/05/19 20:44 03/05/19 20:44 03/05/19 20:44 03/05/19 20:44 03/05/19 20:44 General appearance: Present: cooperative, A&O X 3, pleasant, no acute distress, answers questions appropriately Exam: - - Head Head exam: Present: normal inspection - Eye Eye exam: Present: EOMI, normal appearance - Neck Neck exam general surgery: Present: full ROM - Respiratory Respiratory exam: Present: wheezes. Absent: CTAB, rales, respiratory distress, rhonchi - Cardiovascular Cardiovascular exam: Present: tachycardia. Absent: diastolic murmur, systolic murmur - GI/Abdominal GI/Abdominal exam: Present: normal bowel sounds, soft. Absent: tenderness - Extremities Exam Extremities exam: Present: pedal edema, tenderness, warm, radial pulses palpable and symmetrical Additional comments: Left foot tenderness, with 3+ pitting edema in the left foot as well. - Neurological Exam Neurological exam: Present: no focal deficits, strengths equal and symetr throughout. Absent: motor sensory deficit, facial droop, speech deficit Additional comments: No tremor, no pronator drift - Skin Skin exam: Present: dry, erythema, warm. Absent: normal color Additional comments: Left foot erythema to mid rubio, darker at toes. No open wounds. 3+ pitting edema in the left foot Internal Med - H&P Results - Labs CBC & Chem 7: 03/05/19 15:59 03/05/19 17:07 Labs: Short CBC 03/05/19 Range/Units 15:59 WBC 10.8 (4.3-11.1) K/mcL Hgb 13.6 (12.9-16.9) g/dL Hct 38.5 (37.5-50.1) % Plt Count 241 (140-400) K/mcL Neutrophils # 8.1 (1.6-8.9) K/mcL BMP 03/05/19 03/05/19 15:59 17:07 Sodium 118 L* 120 L* Potassium 3.5 Chloride 78 L Carbon Dioxide 21 L BUN 10 Creatinine 0.75 Glucose 90 Calcium 9.1 Urine 03/05/19 Range/Units 16:45 Urine Color Dark Yellow (Yellow) Urine Clarity Clear (Clear) Urine pH 5.5 (5.0-8.0) pH Units Ur Specific [place] 1.014 (1.010-1.025) Urine Protein 30 H (Neg-Trace) mg/dL Urine Glucose (UA) Normal (Normal) mg/dL - ABG Interpretation ABG results: 03/05/19 18:18 VBG pH 7.42 VBG pCO2 33 L VBG pO2 106 H VBG HCO3 21 - Impressions ITS Impressions Foot X-Ray 03/05/19 15:51 IMPRESSION: 1. Circumferential soft tissue swelling of the leg and ankle. No associated acute osseous abnormality. 2. No evidence of soft tissue gas or radiopaque foreign body. D/ / Tres Lowery MD / Tres Lowery MD Interpreting Provider: Tres Lowery MD Tibia/Fibula X-Ray 03/05/19 15:51 IMPRESSION: 1. Circumferential soft tissue swelling of the leg and ankle. No associated acute osseous abnormality. 2. No evidence of soft tissue gas or radiopaque foreign body. D/ / Tres Lowery MD / Tres Lowery MD Interpreting Provider: Tres Lowery MD - Assessment and Plan (1) Cellulitis Current Visit: Yes Status: Acute Assessment and plan: Patient's left foot has severe cellulitic changes from the toes to his midshin. Tender to palpation skin appears intact, with small superficial defect in the toes. Foot, fibula and tibia x-rays were ordered that showed circumferential soft tissue swelling of the ankle and leg. There was no acute osseous abnormality seen. There is no evidence of soft tissue gas or foreign body. Blood cultures were drawn, as well as wound cultures. He was started on vancomycin and Zosyn by the emergency department. Continue IV antibiotics Follow-up wound and blood cultures Continue to monitor for worsening signs of infection Qualifiers: Site of cellulitis: extremity Site of cellulitis of extremity: lower extremity Laterality: left Qualified Code(s): L03.116 - Cellulitis of left lower limb (2) Hyponatremia Current Visit: Yes Status: Acute Assessment and plan: Sodium initial emergency department is 118, on repeat 1 hour later increased to 120. Emergency department started the patient on IV saline bolus, of which patient received about three fourths of this back. The IV fluids were stopped. And a repeat BMP was ordered. Urine sodium studies were also ordered. Patient has had this in the past likely secondary to alcoholism. BMPs every 4 hours Start slow IV fluids Avoid overcorrection (3) Alcohol abuse Current Visit: No Status: Chronic Assessment and plan: History of alcoholism, with history of withdrawal as well. Drinks 8-9 beers daily. He says he only drank one beer today. Alcohol level in the emergency department was 30. [facility] protocol Thiamine IV Full a gas Multivitamin PPI Cardiac telemetry (4) Shortness of breath Current Visit: Yes Status: Acute Assessment and plan: Patient also wheezy on exam. Is a chronic smoker. We will give albuterol as needed with scheduled DuoNeb nebs (5) Tobacco use disorder Current Visit: No Status: Chronic Assessment and plan: Patient declines nicotine patch (6) Elevated beta-hydroxybutyric acid level Current Visit: Yes Status: Acute Assessment and plan: Likely secondary to malnutrition and ketosis patient not acidotic on VBG. Did have elevated lactic acid initially at 3.8. The lactic acid has now improved to 1.2. Continue to monitor (7) DVT prophylaxis Current Visit: Yes Status: Acute Assessment and plan: Subcutaneous heparin - Time Spent With Patient Total time spent is greater than 50% in coordination of care (as documented) at patient's floor/unit and/or counseling patient: Greater than 35 minutes
[2019-03-05] MEDS ORDERED: Vitamin B Complex/Vit C/Vit E 1 EACH TABLET PO SCH (21:30)
[2019-03-05] MEDS ORDERED: Acetaminophen 325 MG TABLET PO PRN (21:52)
[2019-03-05] MEDS ORDERED: Albuterol 2.5 MG/3 ML NEBULIZER IH PRN (21:57)
[2019-03-05] MEDS: Pantoprazole 40 MG VIAL IVP SCH (21:58)
[2019-03-05] MEDS: Thiamine (B-1) 100 MG TABLET PO SCH (21:58)
[2019-03-05] MEDS: Folic Acid 1 MG TABLET PO SCH (21:58)
[2019-03-05 22:03] LABS: BUN/Creatinine Ratio 12 (6-26); Blood Urea Nitrogen 9 mg/dL (6-20); Calcium 8.3 mg/dL (8.6-10.3); Carbon Dioxide 22 mEq/L (23-29); Chloride 86 mEq/L (98-107); Glucose 82 mg/dL (70-105); Osmolality,Calculated 258 (280-300); Potassium 3.6 mEq/L (3.5-5.1); Sodium 125 mEq/L (136-145); eGFR For African Americans > 60 (> 60); eGFR For Non-African Americans > 60 (> 60)
[2019-03-05] MEDS: *HR* OxyCODONE Immed Rel 5 MG TABLET PO PRN (22:24)
[2019-03-05] MEDS: Thiamine (B-1) 100 MG, Folic Acid 1 MG, MVI, adult with vitamin K 10 ML in 0.9 % Sodi... IVPB SCH (22:25)
[2019-03-05 23:43] LABS: BUN/Creatinine Ratio 13 (6-26); Blood Urea Nitrogen 9 mg/dL (6-20); Calcium 8.2 mg/dL (8.6-10.3); Carbon Dioxide 20 mEq/L (23-29); Chloride 89 mEq/L (98-107); Glucose 84 mg/dL (70-105); Osmolality,Calculated 258 (280-300); Potassium 3.6 mEq/L (3.5-5.1); Sodium 125 mEq/L (136-145); eGFR For African Americans > 60 (> 60); eGFR For Non-African Americans > 60 (> 60)
[2019-03-06] MEDS: Ipratropium/Albuterol Neb 3 ML IH SCH ×5 (00:06→21:48)
[2019-03-06] MEDS: Piperacillin/Tazobactam 3.375 GM in 0.9 % Sodium Chloride Mini Bag 100 ML IVPB SCH ×3 (01:20→16:37)
[2019-03-06 02:20] LABS: BUN/Creatinine Ratio 10 (6-26); Blood Urea Nitrogen 8 mg/dL (6-20); Calcium 8.4 mg/dL (8.6-10.3); Carbon Dioxide 24 mEq/L (23-29); Chloride 91 mEq/L (98-107); Glucose 85 mg/dL (70-105); Osmolality,Calculated 262 (280-300); Potassium 3.8 mEq/L (3.5-5.1); Sodium 127 mEq/L (136-145); eGFR For African Americans > 60 (> 60); eGFR For Non-African Americans > 60 (> 60)
[2019-03-06] MEDS ORDERED: D5% in Water 500 ML IVC SCH (04:15)
[2019-03-06] MEDS: *HR* Heparin 5,000 UNIT/ML VIAL SQ SCH ×2 (05:15→18:09)
[2019-03-06] MEDS: Pantoprazole 40 MG VIAL IVP SCH (05:15)
[2019-03-06] MEDS: *HR* OxyCODONE Immed Rel 5 MG TABLET PO PRN ×2 (05:26→21:46)
[2019-03-06] MEDS: D5% in Water 500 ML IVC SCH ×2 (06:12→11:55)
[2019-03-06 06:21] LABS: Hematocrit 35.6 % (37.5-50.1); Hemoglobin 12.2 g/dL (12.9-16.9); Mean Corpuscular HGB Conc 34.3 g/dL (31.6-35.5); Mean Corpuscular Hemoglobin 32.9 pg (28.0-33.3); Mean Platelet Volume 9.4 fL (9.4-12.4); Platelet Count 205 K/mcL (140-400); Red Blood Count 3.71 M/mcL (4.19-5.50); Red Cell Distribution Width 12.3 % (11.5-14.5); White Blood Count 8.7 K/mcL (4.3-11.1)
[2019-03-06 06:30] LABS: INR 1.1; Prothrombin Time 12.2 Seconds (9.4-12.1)
[2019-03-06 06:40] LABS: Albumin 3.1 g/dL (3.5-5.7); Albumin/Globulin Ratio 1.2 (1.1-2.2); Bilirubin,Direct 0.4 mg/dL (0.0-0.2); Bilirubin,Indirect 0.8 mg/dL (0.0-1.2); Bilirubin,Total 1.2 mg/dL (0.3-1.0); Globulin 2.6 g/dL (2.4-3.5); Total Protein 5.7 g/dL (6.4-8.9)
[2019-03-06 06:41] LABS: BUN/Creatinine Ratio 11 (6-26); Blood Urea Nitrogen 8 mg/dL (6-20); Carbon Dioxide 26 mEq/L (23-29); Chloride 93 mEq/L (98-107); Glucose 93 mg/dL (70-105); Magnesium 1.6 mg/dL (1.6-2.6); Osmolality,Calculated 268 (280-300); Phosphorous 2.7 mg/dL (2.7-4.5); Potassium 3.3 mEq/L (3.5-5.1); Sodium 130 mEq/L (136-145); eGFR For African Americans > 60 (> 60); eGFR For Non-African Americans > 60 (> 60)
[2019-03-06] MEDS: Folic Acid 1 MG TABLET PO SCH (07:42)
[2019-03-06] MEDS: Thiamine (B-1) 100 MG TABLET PO SCH (07:42)
[2019-03-06] MEDS: *HR* HYDROcodone/Acet 5/325 mg TABLET PO PRN ×3 (07:43→22:58)
[2019-03-06 12:08] LABS: BUN/Creatinine Ratio 9 (6-26); Blood Urea Nitrogen 7 mg/dL (6-20); Calcium 8.1 mg/dL (8.6-10.3); Carbon Dioxide 28 mEq/L (23-29); Chloride 91 mEq/L (98-107); Glucose 142 mg/dL (70-105); Osmolality,Calculated 264 (280-300); Potassium 3.1 mEq/L (3.5-5.1); Sodium 127 mEq/L (136-145); eGFR For African Americans > 60 (> 60); eGFR For Non-African Americans > 60 (> 60)
--- NOTE | 2019-03-06 12:35 | Internal Med Progress Note ---
Hospitalist Progress Note - Encounter Date of Encounter: 03/06/19 Time of Encounter: 12:32 - Subjective Interval History: I have seen and evaluated the patient at bedside. patient reports pain on his left foot. admits drinking 9 beers a day before coming to the ED. last time he had a drink was before presenting to the ED. denies visual or auditory halluc ination. denies nausea, vomiting, abdominal pain or headache. - Exam Vitals: Temp Pulse Resp BP Pulse Ox 97.7 F 70 16 126/79 95 03/06/19 11:55 03/06/19 11:55 03/06/19 11:55 03/06/19 11:55 03/06/19 11:55 Exam: Vitals: Reviewed General: Alert and oriented x4. In mild distress due to pain on his left lower extr Cardiovascular: RRR, normal S1 & S2, no rubs, murmurs or gallops. Lungs: CTA b/l, no wheezes or crackles. Abdomen: Soft, non-tender, no rigidity. Extremities: erythema and purulent drainage on the left foot between the toes. Neurological: Normal cognition and motor skills. Rest of the physical exam is non contributory - Assessment and Plan (1) Alcohol abuse Current Visit: No Status: Chronic (2) Tobacco use disorder Current Visit: No Status: Chronic (3) Hyponatremia Current Visit: Yes Status: Acute (4) Cellulitis Current Visit: Yes Status: Acute (5) DVT prophylaxis Current Visit: Yes Status: Acute (6) History of CVA (cerebrovascular accident) Current Visit: Yes Status: Acute (7) HTN (hypertension) Current Visit: Yes Status: Chronic (8) GERD (gastroesophageal reflux disease) Current Visit: No Status: Chronic (9) Liver cirrhosis Current Visit: No Status: Chronic (10) Hypokalemia Current Visit: No Status: Resolved - Summary of Assessment and Plan Summary of Assessment and Plan: 53 YO male PMH of GERD, CVA, HTN, liver cirrhosis and alcohol abuse. Patient presented to the hospital due to pain, erythema and drainage from the left foot. Assessment: 1. Purulent cellulitis of the left lower extr 2. Hyponatremia possible beer potomania 3. HTN 4. Alcohol abuse 5. DVT prophylaxis 6. GERD 7. Hypokalemia Plan - Patient with Hyponatremia. admits drinking 9 beers a day. possible beers potomania - continue D5W @75ml/hr. - BMP Q4HRs - DC IV fluids, Sodium has been already corrected 8 meq. - fluids restrictions to 1.5 litters a day - neuro checks Q4HRs - c/w CIWA protocol. and multi-vitamins - bronchodilators and incentive spirometry - on broad spectrum IV antibiotics - Blood culture: no growth to date - Wound culture: incubating - On heparin for DVT prophylaxis. - cardiac diet. - on PPIs and anti-emetics - electrolyte replaced. will repeat potassium level tomorrow morning - Time Spent with Patient Total time spent is greater than 50% in coordination of care (as documented) at patient's floor/unit and/or counseling patient: Greater than 35 minutes (45) Plan of Care Discussed with: patient (and the nure) Internal Medicine: Result - Labs CBC & Chem 7: 03/06/19 06:11 03/06/19 11:23 Labs: Short CBC 03/05/19 03/06/19 Range/Units 15:59 06:11 WBC 10.8 8.7 (4.3-11.1) K/mcL Hgb 13.6 12.2 L (12.9-16.9) g/dL Hct 38.5 35.6 L (37.5-50.1) % Plt Count 241 205 (140-400) K/mcL Neutrophils # 8.1 (1.6-8.9) K/mcL [facility] 03/05/19 03/05/19 03/05/19 15:59 17:07 21:19 Sodium 118 L* 120 L* 125 L Potassium 3.5 3.6 Chloride 78 L 86 L Carbon Dioxide 21 L 22 L BUN 10 9 Creatinine 0.75 0.73 Glucose 90 82 Calcium 9.1 8.3 L 03/05/19 03/06/19 03/06/19 23:10 01:49 06:11 Sodium 125 L 127 L 130 L Potassium 3.6 3.8 3.3 L Chloride 89 L 91 L 93 L Carbon Dioxide 20 L 24 26 BUN 9 8 8 Creatinine 0.71 0.77 0.74 Glucose 84 85 93 Calcium 8.2 L 8.4 L 8.0 L 03/06/19 11:23 Sodium 127 L Potassium 3.1 L Chloride 91 L Carbon Dioxide 28 BUN 7 Creatinine 0.78 Glucose 142 H Calcium 8.1 L Liver Function 03/06/19 Range/Units 06:11 Total Bilirubin 1.2 H (0.3-1.0) mg/dL Direct Bilirubin 0.4 H (0.0-0.2) mg/dL AST 17 (13-39) Units/L ALT 9 (7-52) Units/L Alkaline Phosphatase 69 (34-104) Units/L Albumin 3.1 L (3.5-5.7) g/dL Urine 03/05/19 Range/Units 16:45 Urine Color Dark Yellow (Yellow) Urine Clarity Clear (Clear) Urine pH 5.5 (5.0-8.0) pH Units Ur Specific [place] 1.014 (1.010-1.025) Urine Protein 30 H (Neg-Trace) mg/dL Urine Glucose (UA) Normal (Normal) mg/dL - ABG Interpretation ABG results: PT/INR, D-dimer PT 12.2 Seconds (9.4-12.1) H 03/06/19 06:11 - Impressions Impressions Foot X-Ray 03/05/19 15:51 IMPRESSION: 1. Circumferential soft tissue swelling of the leg and ankle. No associated acute osseous abnormality. 2. No evidence of soft tissue gas or radiopaque foreign body. D/ / Tres Lowery MD / Tres Lowery MD Interpreting Provider: Tres Lowery MD Tibia/Fibula X-Ray 03/05/19 15:51 IMPRESSION: 1. Circumferential soft tissue swelling of the leg and ankle. No associated acute osseous abnormality. 2. No evidence of soft tissue gas or radiopaque foreign body. D/ / Tres Lowery MD / Tres Lowery MD Interpreting Provider: Tres Lowery MD Consult Discharge Plan - Plan Referrals: NONE,PCP [Primary Care Provider] - (4) Cellulitis Qualifiers: Site of cellulitis: extremity Site of cellulitis of extremity: lower extremity Laterality: left Qualified Code(s): L03.116 - Cellulitis of left lower limb (7) HTN (hypertension) Qualifiers: Hypertension type: unspecified Qualified Code(s): I10 - Essential (primary) hypertension (8) GERD (gastroesophageal reflux disease) Qualifiers: Esophagitis presence: without esophagitis Qualified Code(s): K21.9 - Gastro- esophageal reflux disease without esophagitis (9) Liver cirrhosis Qualifiers: Hepatic cirrhosis type: alcoholic cirrhosis Ascites presence: without ascites Qualified Code(s): K70.30 - Alcoholic cirrhosis of liver without ascites
[2019-03-06] MEDS: Sucralfate 1 GM TABLET PO SCH ×2 (15:04→21:40)
[2019-03-06 16:36] LABS: BUN/Creatinine Ratio 7 (6-26); Blood Urea Nitrogen 7 mg/dL (6-20); Calcium 8.2 mg/dL (8.6-10.3); Carbon Dioxide 27 mEq/L (23-29); Chloride 93 mEq/L (98-107); Glucose 104 mg/dL (70-105); Osmolality,Calculated 262 (280-300); Potassium 3.8 mEq/L (3.5-5.1); Sodium 127 mEq/L (136-145); eGFR For African Americans > 60 (> 60); eGFR For Non-African Americans > 60 (> 60)
[2019-03-06 21:08] LABS: BUN/Creatinine Ratio 7 (6-26); Blood Urea Nitrogen 8 mg/dL (6-20); Calcium 8.4 mg/dL (8.6-10.3); Carbon Dioxide 28 mEq/L (23-29); Chloride 94 mEq/L (98-107); Glucose 114 mg/dL (70-105); Osmolality,Calculated 267 (280-300); Potassium 3.7 mEq/L (3.5-5.1); Sodium 129 mEq/L (136-145); eGFR For African Americans > 60 (> 60); eGFR For Non-African Americans > 60 (> 60)
[2019-03-06] MEDS: Carbidopa/Levodopa ER 50/200 TABLET PO SCH (21:40)
[2019-03-06] MEDS: Thiamine (B-1) 100 MG, Folic Acid 1 MG, MVI, adult with vitamin K 10 ML in 0.9 % Sodi... IVPB SCH (21:40)
[2019-03-06 23:33] LABS: BUN/Creatinine Ratio 6 (6-26); Blood Urea Nitrogen 8 mg/dL (6-20); Calcium 8.2 mg/dL (8.6-10.3); Carbon Dioxide 24 mEq/L (23-29); Chloride 94 mEq/L (98-107); Glucose 115 mg/dL (70-105); Osmolality,Calculated 263 (280-300); Potassium 3.7 mEq/L (3.5-5.1); Sodium 127 mEq/L (136-145); eGFR For African Americans > 60 (> 60); eGFR For Non-African Americans 56 (> 60)
[2019-03-07] MEDS: Piperacillin/Tazobactam 3.375 GM in 0.9 % Sodium Chloride Mini Bag 100 ML IVPB SCH ×3 (00:14→16:01)
[2019-03-07] MEDS: Ipratropium/Albuterol Neb 3 ML IH SCH ×4 (04:06→22:10)
[2019-03-07] MEDS: Pantoprazole 40 MG VIAL IVP SCH (06:38)
[2019-03-07] MEDS: *HR* Heparin 5,000 UNIT/ML VIAL SQ SCH ×2 (06:38→17:33)
[2019-03-07] MEDS: *HR* HYDROcodone/Acet 5/325 mg TABLET PO PRN ×3 (06:56→17:33)
[2019-03-07] MEDS: Sucralfate 1 GM TABLET PO SCH ×4 (06:57→21:53)
[2019-03-07] MEDS: Carbidopa/Levodopa ER 50/200 TABLET PO SCH ×2 (07:00→20:43)
[2019-03-07] MEDS: *HR* OxyCODONE Immed Rel 5 MG TABLET PO PRN ×3 (07:38→20:43)
[2019-03-07] MEDS: Thiamine (B-1) 100 MG TABLET PO SCH (07:39)
[2019-03-07] MEDS: Folic Acid 1 MG TABLET PO SCH (07:39)
[2019-03-07 08:17] LABS: BUN/Creatinine Ratio 7 (6-26); Blood Urea Nitrogen 6 mg/dL (6-20); Calcium 8.1 mg/dL (8.6-10.3); Carbon Dioxide 26 mEq/L (23-29); Chloride 96 mEq/L (98-107); Glucose 103 mg/dL (70-105); Magnesium 1.5 mg/dL (1.6-2.6); Osmolality,Calculated 270 (280-300); Phosphorous 2.7 mg/dL (2.7-4.5); Potassium 3.3 mEq/L (3.5-5.1); Sodium 131 mEq/L (136-145); eGFR For African Americans > 60 (> 60); eGFR For Non-African Americans > 60 (> 60)
--- NOTE | 2019-03-07 15:56 | Internal Med Progress Note ---
Hospitalist Progress Note - Encounter Date of Encounter: 03/07/19 Time of Encounter: 15:51 - Subjective Interval History: I have seen and evaluated the patient at beside. patient denies visual, or auditory hallucination. No intervention, or resting tremors. Denies headache, shortness of breath nausea or vomiting. - Exam Vitals: Temp Pulse Resp BP Pulse Ox 98.2 F 84 15 132/82 95 03/07/19 15:44 03/07/19 15:44 03/07/19 15:44 03/07/19 15:44 03/07/19 15:44 Exam: Vitals: Reviewed General: Alert and oriented x4. In no acute distress. Cardiovascular: RRR, normal S1 & S2, no rubs, murmurs or gallops. Lungs: CTA b/l, no wheezes or crackles. Abdomen: Soft, non-tender, no rigidity. Extremities: Clean dressing on the left lower extremity. Neurological: No focal neurologic abnormalities Rest of the physical exam is non contributory - Assessment and Plan (1) Alcohol abuse Current Visit: No Status: Chronic (2) Tobacco use disorder Current Visit: No Status: Chronic (3) Hyponatremia Current Visit: Yes Status: Acute (4) Cellulitis Current Visit: Yes Status: Acute (5) DVT prophylaxis Current Visit: Yes Status: Acute (6) History of CVA (cerebrovascular accident) Current Visit: Yes Status: Acute (7) HTN (hypertension) Current Visit: Yes Status: Chronic (8) GERD (gastroesophageal reflux disease) Current Visit: No Status: Chronic (9) Liver cirrhosis Current Visit: No Status: Chronic (10) Hypokalemia Current Visit: No Status: Resolved - Summary of Assessment and Plan Summary of Assessment and Plan: 53 YO male PMH of GERD, CVA, HTN, liver cirrhosis and alcohol abuse. Patient presented to the hospital due to pain, erythema and drainage from the left foot. Assessment: 1. Purulent cellulitis of the left lower extr 2. Hyponatremia possible beer potomania 3. HTN 4. Alcohol abuse 5. DVT prophylaxis 6. GERD 7. Hypomagnesemia 8. Hypokalemia Plan - Continue fluid restriction to 1.5 L a day - On CIWA protocol. Patient has not required any IV Ativan. - Multi-vitamins - c/w bronchodilators and incentive spirometry - On vancomycin per pharmacy protocol and piperacillin/tazobactam - Blood culture: no growth to date - Wound culture: incubating - On heparin for DVT prophylaxis. - c/w PPIs and anti-emetics - electrolyte replaced. will repeat potassium and magnesium level tomorrow morning Disposition - Patient to remain in the hospital on broad-spectrum IV antibiotics for at least 24-48 hours. - Time Spent with Patient Total time spent is greater than 50% in coordination of care (as documented) at patient's floor/unit and/or counseling patient: Greater than 35 minutes (45) Plan of Care Discussed with: patient (and the nurse.) Internal Medicine: Result - Labs CBC & Chem 7: 03/06/19 06:11 03/07/19 07:37 Labs: BMP 03/06/19 03/06/19 03/06/19 15:49 19:55 22:58 Sodium 127 L 129 L 127 L Potassium 3.8 3.7 3.7 Chloride 93 L 94 L 94 L Carbon Dioxide 27 28 24 BUN 7 8 8 Creatinine 1.00 1.16 1.33 H Glucose 104 114 H 115 H Calcium 8.2 L 8.4 L 8.2 L 03/07/19 07:37 Sodium 131 L Potassium 3.3 L Chloride 96 L Carbon Dioxide 26 BUN 6 Creatinine 0.86 Glucose 103 Calcium 8.1 L - ABG Interpretation ABG results: PT/INR, D-dimer PT 12.2 Seconds (9.4-12.1) H 03/06/19 06:11 Consult Discharge Plan - Plan Referrals: NONE,PCP [Primary Care Provider] - (4) Cellulitis Qualifiers: Site of cellulitis: extremity Site of cellulitis of extremity: lower extremity Laterality: left Qualified Code(s): L03.116 - Cellulitis of left lower limb (7) HTN (hypertension) Qualifiers: Hypertension type: unspecified Qualified Code(s): I10 - Essential (primary) hypertension (8) GERD (gastroesophageal reflux disease) Qualifiers: Esophagitis presence: without esophagitis Qualified Code(s): K21.9 - Gastro- esophageal reflux disease without esophagitis (9) Liver cirrhosis Qualifiers: Hepatic cirrhosis type: alcoholic cirrhosis Ascites presence: without ascites Qualified Code(s): K70.30 - Alcoholic cirrhosis of liver without ascites
[2019-03-07] MEDS: Thiamine (B-1) 100 MG, Folic Acid 1 MG, MVI, adult with vitamin K 10 ML in 0.9 % Sodi... IVPB SCH (17:38)
[2019-03-08] MEDS: Piperacillin/Tazobactam 3.375 GM in 0.9 % Sodium Chloride Mini Bag 100 ML IVPB SCH ×3 (00:13→16:01)
[2019-03-08] MEDS: Ipratropium/Albuterol Neb 3 ML IH SCH ×4 (03:44→21:38)
[2019-03-08 04:40] LABS: Basophils % 0.7 %; Eosinophils # 0.3 K/mcL (0.0-0.6); Eosinophils % 5.2 %; Hematocrit 35.8 % (37.5-50.1); Hemoglobin 11.7 g/dL (12.9-16.9); Immature Granulocytes % 0.9 % (0-4); Lymphocytes # 1.7 K/mcL (0.6-4.6); Lymphocytes % 29.9 %; Mean Corpuscular HGB Conc 32.7 g/dL (31.6-35.5); Mean Corpuscular Hemoglobin 32.9 pg (28.0-33.3); Mean Corpuscular Volume 100.6 fL (83.0-100.0); Mean Platelet Volume 9.1 fL (9.4-12.4); Monocytes # 0.7 K/mcL (0.0-1.3); Monocytes % 11.2 %; Platelet Count 223 K/mcL (140-400); Red Blood Count 3.56 M/mcL (4.19-5.50); Red Cell Distribution Width 12.6 % (11.5-14.5); Segmented Neutrophils % 52.1 %; White Blood Count 5.8 K/mcL (4.3-11.1)
[2019-03-08 04:51] LABS: BUN/Creatinine Ratio 7 (6-26); Blood Urea Nitrogen 6 mg/dL (6-20); Calcium 8.8 mg/dL (8.6-10.3); Carbon Dioxide 26 mEq/L (23-29); Chloride 97 mEq/L (98-107); Glucose 105 mg/dL (70-105); Magnesium 1.5 mg/dL (1.6-2.6); Osmolality,Calculated 272 (280-300); Phosphorous 3.1 mg/dL (2.7-4.5); Potassium 3.7 mEq/L (3.5-5.1); Sodium 132 mEq/L (136-145); eGFR For African Americans > 60 (> 60); eGFR For Non-African Americans > 60 (> 60)
[2019-03-08] MEDS ORDERED: Aminoglycoside Consult 1 EACH MC ONE (06:55)
[2019-03-08] MEDS: *HR* Heparin 5,000 UNIT/ML VIAL SQ SCH ×2 (09:20→19:55)
[2019-03-08] MEDS: Folic Acid 1 MG TABLET PO SCH (09:21)
[2019-03-08] MEDS: Sucralfate 1 GM TABLET PO SCH ×4 (09:21→22:12)
[2019-03-08] MEDS: Vitamin B Complex/Vit C/Vit E 1 EACH TABLET PO SCH (09:21)
[2019-03-08] MEDS: Thiamine (B-1) 100 MG TABLET PO SCH (09:21)
[2019-03-08] MEDS: Carbidopa/Levodopa ER 50/200 TABLET PO SCH ×2 (09:21→19:54)
[2019-03-08] MEDS: *HR* OxyCODONE Immed Rel 5 MG TABLET PO PRN (09:24)
[2019-03-08] MEDS: Magnesium Oxide 400 MG TABLET PO SCH (09:25)
--- NOTE | 2019-03-08 13:45 | Internal Med Progress Note ---
Hospitalist Progress Note - Encounter Date of Encounter: 03/08/19 Time of Encounter: 13:41 - Subjective Interval History: I have seen and evaluated the patient at bedside. patient reported feeling better. denies dizzines, nausea, headache abdominal pain or chest pain. denies shortness of breath - Exam Vitals: Temp Pulse Resp BP Pulse Ox 98.3 F 73 17 156/89 98 03/08/19 11:51 03/08/19 11:51 03/08/19 11:51 03/08/19 11:51 03/08/19 11:51 Exam: Vitals: Reviewed General: Alert and oriented x4. In no acute distress. Cardiovascular: RRR, normal S1 & S2, no rubs, murmurs or gallops. Lungs: CTA b/l, no wheezes or crackles. Abdomen: Soft, non-tender, no rigidity. Extremities: dry crusting lesion on the dorsal aspect of the foot. Neurological: No focal neurological abnormalities Rest of the physical exam is non contributory - Assessment and Plan (1) Alcohol abuse Current Visit: No Status: Chronic (2) Tobacco use disorder Current Visit: No Status: Chronic (3) Hyponatremia Current Visit: Yes Status: Acute (4) Cellulitis Current Visit: Yes Status: Acute (5) DVT prophylaxis Current Visit: Yes Status: Acute (6) History of CVA (cerebrovascular accident) Current Visit: Yes Status: Acute (7) HTN (hypertension) Current Visit: Yes Status: Chronic (8) GERD (gastroesophageal reflux disease) Current Visit: No Status: Chronic (9) Liver cirrhosis Current Visit: No Status: Chronic (10) Hypokalemia Current Visit: No Status: Resolved - Summary of Assessment and Plan Summary of Assessment and Plan: 53 YO male PMH of GERD, CVA, HTN, liver cirrhosis and alcohol abuse. Patient presented to the hospital due to pain, erythema and drainage from the left foot. Assessment: 1. Purulent cellulitis of the left lower extr 2. Hyponatremia possible beer potomania 3. HTN 4. Alcohol abuse 5. DVT prophylaxis 6. GERD 7. Hypomagnesemia Plan - d/c fluid restriction to 1.5 L a day. sodium level near normal. patient with no neurological abnormalities. - c/w CIWA protocol. Patient has not required any IV Ativan. - on multi-vitamins - resume home dose of amlodipine for better BP control - bronchodilators and incentive spirometry - Wound culture: growing gram negative rods and gram positive cocci. pending sensitivity and specificity. - On vancomycin per pharmacy protocol and piperacillin/tazobactam 3.375mg/IV Q8HRs - Blood culture: no growth to date - heparin for DVT prophylaxis. - PPIs and anti-emetics - mag replaced. will repeat potassium and magnesium level tomorrow morning - started on oral scheduled mag replacement. - wound care, consulted. Disposition - Patient to remain in the hospital on broad-spectrum IV antibiotics. wound culture growing multiple bacteria - Time Spent with Patient Total time spent is greater than 50% in coordination of care (as documented) at patient's floor/unit and/or counseling patient: Greater than 35 minutes (45) Plan of Care Discussed with: patient (and the nurse.) Internal Medicine: Result - Labs CBC & Chem 7: 03/08/19 04:20 03/08/19 04:20 Labs: Short CBC 03/08/19 Range/Units 04:20 WBC 5.8 (4.3-11.1) K/mcL Hgb 11.7 L (12.9-16.9) g/dL Hct 35.8 L (37.5-50.1) % Plt Count 223 (140-400) K/mcL Neutrophils # 3.0 (1.6-8.9) K/mcL BMP 03/08/19 04:20 Sodium 132 L Potassium 3.7 Chloride 97 L Carbon Dioxide 26 BUN 6 Creatinine 0.85 Glucose 105 Calcium 8.8 - ABG Interpretation ABG results: PT/INR, D-dimer PT 12.2 Seconds (9.4-12.1) H 03/06/19 06:11 Consult Discharge Plan - Plan Referrals: NONE,PCP [Primary Care Provider] - (4) Cellulitis Qualifiers: Site of cellulitis: extremity Site of cellulitis of extremity: lower extremity Laterality: left Qualified Code(s): L03.116 - Cellulitis of left lower limb (7) HTN (hypertension) Qualifiers: Hypertension type: unspecified Qualified Code(s): I10 - Essential (primary) hypertension (8) GERD (gastroesophageal reflux disease) Qualifiers: Esophagitis presence: without esophagitis Qualified Code(s): K21.9 - Gastro- esophageal reflux disease without esophagitis (9) Liver cirrhosis Qualifiers: Hepatic cirrhosis type: alcoholic cirrhosis Ascites presence: without ascites Qualified Code(s): K70.30 - Alcoholic cirrhosis of liver without ascites
[2019-03-08] MEDS: *HR* HYDROcodone/Acet 5/325 mg TABLET PO PRN ×2 (16:01→22:12)
[2019-03-08] MEDS: amLODIPine 5 MG TABLET PO SCH (16:02)
[2019-03-09] MEDS: Piperacillin/Tazobactam 3.375 GM in 0.9 % Sodium Chloride Mini Bag 100 ML IVPB SCH ×4 (00:25→23:35)
[2019-03-09] MEDS: *HR* HYDROcodone/Acet 5/325 mg TABLET PO PRN ×4 (04:05→22:07)
[2019-03-09] MEDS: Ipratropium/Albuterol Neb 3 ML IH SCH ×4 (04:20→21:52)
[2019-03-09] MEDS: *HR* Heparin 5,000 UNIT/ML VIAL SQ SCH ×2 (05:41→17:25)
[2019-03-09] MEDS: Sucralfate 1 GM TABLET PO SCH ×4 (07:39→22:07)
[2019-03-09] MEDS: Magnesium Oxide 400 MG TABLET PO SCH (07:39)
[2019-03-09] MEDS: amLODIPine 5 MG TABLET PO SCH (07:39)
[2019-03-09] MEDS: Folic Acid 1 MG TABLET PO SCH (07:39)
[2019-03-09] MEDS: Carbidopa/Levodopa ER 50/200 TABLET PO SCH ×2 (07:39→20:24)
[2019-03-09] MEDS: Vitamin B Complex/Vit C/Vit E 1 EACH TABLET PO SCH (07:40)
[2019-03-09] MEDS: Thiamine (B-1) 100 MG TABLET PO SCH (07:40)
--- NOTE | 2019-03-09 11:53 | Podiatry Consult Note ---
Date of Encounter: 03/09/19 Time of Encounter: 10:55 Assessment and Plan (1) Tobacco use disorder Current visit: No Status: Chronic Assessment: -Smokes 1/2 ppd for unknown number of years Plan: -Smoking cessation to promote wound healing and prevent further complication (2) Cellulitis Current visit: Yes Status: Acute Assessment: -Cellulitis appears to have improved, dressing removed examined and evaluated as noted below -Superficial wound plantar aspect of left foot with necrotic and fibrotic tissue -Dry flaking skin noted periwound -2/4 PT/DP pulses noted -WBC 5.8 -ESR 37, CRP 77 -X-ray of left foot/tib/fib showed circumferential soft tissue swelling of the leg and ankle. No associated acute osseous abnormality. No evidence of soft tissue gas or radiopaque foreign body Plan: Dressing was removed from LLE. Discussed with patient benefit of wound debridement to determine extent of superficial wound and to promote healing. Verbal consent obtained. Debridement was performed of necrotic and fibrotic tissue using sterile suture removal scissors and pick-ups. Wound debrided down to subcutaneous tissue and wound base granular. No tunneling, no undermining. Unable to remove all fibrinous tissue and the wound was not debrided beyond margins. Site flushed with sterile normal saline and covered with adaptic, ABD, Kerlix and secured with medipore tape. -OR tomorrow with Dr. Young for I&D -NPO after midnight -Nature of the procedure, risk versus benefits, potential complications, consequences of surgery, and condition discussed. All questions and concerns addressed. Consent signed and placed in chart. Qualifiers: Site of cellulitis: extremity Site of cellulitis of extremity: lower extre mity Laterality: left Qualified Code(s): L03.116 - Cellulitis of left lower limb History of Present Illness HPI: Mr. Vaughan is a 53 year old male admitted to the hospital for cellulitis. Patient does have a past medical history of CVA, GERD, and HTN. Patient presented to the Emergency Room (ER) on 03/05/2019 with complaints of pain, swelling and redness to the LLE. Patient denies any known injury or quinones. He reports while in an ECF in [place] he noticed blisters to his LLE after taking a shower. He denies any fever, chills, nausea. vomiting, or diarrhea. He denies any chest pain, shortness of breath, or calf pain. A CBC showed a WBC of 10.8, ESR 37, and CRP 77 and he was afebrile upon admission. Highest temperature since admission was 100.0 on 03/07/2019. He has remained afebrile s [place]in[place]. An x-ray of the left foot/tib/fib showed circumferential soft tissue swelling of the leg and ankle. No associated acute osseous abnormality. No evidence of soft tissue gas or radiopaque foreign body. Wound cultures were obtained and preliminary for Gram negative Rods and Gram positive cocci. Anaerobic and blood cultures preliminary. He was started on Vancomycin and Zosyn IV. Podiatry was consulted for possible surgical management. Upon my assessment patient is alert and oriented and no acute distress noted. He does continue to report pain LLE. Patient reports he does drink alcohol approximately 9 beers a day, using marijuana occasionally, and smokes 1/2 pack per day of cigarettes. Past Med Surg Social Fam HX - Past Medical History Medical history: CVA, GERD, hypertension Additional medical history: chronic problems with leg function, parkinsons, patient reports CVA deficits of slurring his words Psychiatric history: no psych history - Past Surgical History Surgical History: cholecystectomy Additional surgical history: left shoulder - Social History Smoking Status: Current every day smoker Smokeless Tobacco Status: Yes Alcohol use: heavy, recent Drug use: marijuana - Family History Mother Adopted: No Family Member Ethnicity: Non- Living Status: Hx Family Cancer: Yes (Lung) Father Adopted: No Living Status: Hx Family Neurologic Disorders: Yes (CVA) Medications and Allergies Carbidopa/Levodopa ER 50/200 [Sinemet ER 50-200 Tab] 0.5 tab PO BID 01/01/19 [History] Omeprazole [PriLOSEC] 20 mg PO BID 01/01/19 [History] Potassium Chloride [K-Tab ER] 20 meq PO DAILY 01/01/19 [History] Sucralfate [Carafate] 1 gm PO QID 01/01/19 [History] Cyanocobalamin (B-12) [Vitamin B12] 1,000 mcg PO DAILY #30 tablet 01/05/19 [Rx] Folic Acid 1 mg PO DAILY #30 tablet 01/05/19 [Rx] Thiamine (B-1) [Vitamin B-1] 100 mg PO DAILY #30 tablet 01/05/19 [Rx] Vitamin B Complex/Vit C/Vit E [Stresstab] 1 each PO DAILY #30 tablet 01/05/19 [Rx] amLODIPine [Norvasc] 5 mg PO DAILY 03/06/19 [History] Allergy/AdvReac Type Severity Reaction Status Date / Time No Known Allergies Allergy Verified 03/06/19 19:24 All Systems Reviewed: The remainder of the systems were reviewed and are negative - Constitutional Additional comments: As per HPI - Cardiovascular Cardiovascular: no chest pain - Respiratory Respiratory: no dyspnea Physical Exam - Constitutional Vitals: Temp Pulse Resp BP Pulse Ox 98.1 F 75 20 133/78 95 03/09/19 11:41 03/09/19 11:41 03/09/19 11:41 03/09/19 11:41 03/09/19 11:41 Exam: Constitutional: Alert and oriented x 3, no acute distress noted Vascular: 2/4 PT/DP pulses noted bilaterally, cap refill less than 3 seconds to all digits, skin cool not cold from tibia to toes bilaterally, no pain with calf squeeze Dermatological: Cellulitis appears to have improved and no longer present at demarcation line, superficial wound noted to dorsal aspect of left foot with necrotic and fibrotic tissue noted. Serosanguineous drainage noted. Dry flaking skin noted periwound. Neurological: Sensation intact, proprioception intact, normal plantar reflex Musculoskeletal: 4/5 muscle strength, normal muscle tone Results - Labs Result Diagrams: 03/08/19 04:20 03/08/19 04:20 Labs: Abnormal lab results RBC 3.56 M/mcL (4.19-5.50) L 03/08/19 04:20 Hgb 11.7 g/dL (12.9-16.9) L 03/08/19 04:20 Hct 35.8 % (37.5-50.1) L 03/08/19 04:20 MCV 100.6 fL (83.0-100.0) H 03/08/19 04:20 MPV 9.1 fL (9.4-12.4) L 03/08/19 04:20 ESR 37 mm/hr (0-10) H 03/07/19 03:36 PT 12.2 Seconds (9.4-12.1) H 03/06/19 06:11 VBG pCO2 33 mmHg (41-51) L 03/05/19 18:18 VBG pO2 106 mmHg (25-50) H 03/05/19 18:18 Sodium 132 mEq/L (136-145) L 03/08/19 04:20 Potassium 3.3 mEq/L (3.5-5.1) L 03/07/19 07:37 Chloride 97 mEq/L (98-107) L 03/08/19 04:20 Carbon Dioxide 20 mEq/L (23-29) L 03/05/19 23:10 Creatinine 1.33 mg/dL (0.70-1.30) H 03/06/19 22:58 Est GFR (Non-Af Amer) 56 (> 60) L 03/06/19 22:58 Glucose 115 mg/dL (70-105) H 03/06/19 22:58 POC Glucose 126 mg/dL (70-99) H 03/06/19 18:39 Calculated Osmolality 272 (280-300) L 03/08/19 04:20 Lactic Acid 3.8 mmol/L (0.5-2.2) H 03/05/19 15:59 Calcium 8.1 mg/dL (8.6-10.3) L 03/07/19 07:37 Magnesium 1.5 mg/dL (1.6-2.6) L 03/08/19 04:20 Total Bilirubin 1.2 mg/dL (0.3-1.0) H 03/06/19 06:11 Direct Bilirubin 0.4 mg/dL (0.0-0.2) H 03/06/19 06:11 C-Reactive Protein 77 mg/L (Less than 10) H 03/07/19 03:36 Serum Total Protein 5.7 g/dL (6.4-8.9) L 03/06/19 06:11 Albumin 3.1 g/dL (3.5-5.7) L 03/06/19 06:11 Beta-Hydroxybutyric Acd > 2.00 mmol/L (0.02-0.27) H 03/05/19 18:05 Urine Protein 30 mg/dL (Neg-Trace) H 03/05/19 16:45 Urine Ketones 15 mg/dL (Negative) H 03/05/19 16:45 Ur Squamous Epith Cells Many per lpf (None-Few) H 03/05/19 16:45 Salicylates < 2.5 mg/dL (15.0-30.0) L 03/05/19 18:05 Acetaminophen < 10 mcg/mL (10-20) L 03/05/19 18:05 Ethyl Alcohol 30 mg/dL (Less than 10) H 03/05/19 17:07 All other labs normal. Consult Discharge Plan - Plan Referrals: Dino Calabrese DO [Resident] - 03/18/19 1:20 pm
--- NOTE | 2019-03-09 12:10 | Internal Med Progress Note ---
Hospitalist Progress Note - Encounter Date of Encounter: 03/09/19 Time of Encounter: 09:00 - Subjective Interval History: No acute events overnight. Denies any worsening left foot pain or dressing soaked in purulent discharge. No fever overnight. - Exam Vitals: Temp Pulse Resp BP Pulse Ox 98.1 F 75 20 133/78 95 03/09/19 11:41 03/09/19 11:41 03/09/19 11:41 03/09/19 11:41 03/09/19 11:41 Exam: Vitals: Reviewed General: Alert and oriented x4. In no acute distress. Cardiovascular: RRR, normal S1 & S2, no rubs, murmurs or gallops. Lungs: CTA b/l, no wheezes or crackles. Abdomen: Soft, non-tender, no rigidity. Extremities: Areas of erythema is receding from demarcation, no further active purulent drainage notedry crusting lesion on the dorsal aspect of the foot. Neurological: No focal neurological abnormalities - Assessment and Plan (1) Cellulitis Current Visit: Yes Status: Acute (2) Liver cirrhosis Current Visit: No Status: Chronic (3) Alcohol abuse Current Visit: No Status: Chronic (4) Tobacco use disorder Current Visit: No Status: Chronic (5) GERD (gastroesophageal reflux disease) Current Visit: No Status: Chronic (6) Hyponatremia Current Visit: Yes Status: Acute (7) History of CVA (cerebrovascular accident) Current Visit: Yes Status: Acute (8) HTN (hypertension) Current Visit: Yes Status: Chronic (9) DVT prophylaxis Current Visit: Yes Status: Acute - Summary of Assessment and Plan Summary of Assessment and Plan: 53 YO male PMH of EtOH liver cirrhosis, CVA, HTN, who is admitted for L LE cellulitis. Assessment: 1. Purulent cellulitis of the left lower extr 2. Hyponatremia possible beer potomania 3. HTN 4. Alcohol abuse 5. DVT prophylaxis 6. GERD Plan - wound culture came back MSSA, P. mirabilis, and 2 additional GNRs. Will d/c IV Vanc and continue zosyn - podiatry input appreciated, for I&D tomorrow - continue analgesics - d/c CIWA protocol as the patient has not required any IV Ativan x 2 days - Blood cultures NGTD - heparin for DVT prophylaxis. - Time Spent with Patient Total time spent is greater than 50% in coordination of care (as documented) at patient's floor/unit and/or counseling patient: 25 - 35 minutes Plan of Care Discussed with: financial services consultant Internal Medicine: Result - Labs CBC & Chem 7: 03/08/19 04:20 03/08/19 04:20 - ABG Interpretation ABG results: PT/INR, D-dimer PT 12.2 Seconds (9.4-12.1) H 03/06/19 06:11 Consult Discharge Plan - Plan Referrals: Dino Calabrese DO [Resident] - 03/18/19 1:20 pm (1) Cellulitis Qualifiers: Qualified Code(s): L03.116 - Cellulitis of left lower limb (2) Liver cirrhosis Qualifiers: Qualified Code(s): K70.30 - Alcoholic cirrhosis of liver without ascites (5) GERD (gastroesophageal reflux disease) Qualifiers: Qualified Code(s): K21.9 - Gastro-esophageal reflux disease without esophagitis (8) HTN (hypertension) Qualifiers: Qualified Code(s): I10 - Essential (primary) hypertension
--- NOTE | 2019-03-09 18:28 | Anesthesia Evaluation PreOp ---
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 History: CVA (deficits = word slurring/speech impairment, decreased LLE mobility), Other (Parkinsons Dz) Other Medical History: GERD, Other (L-foot wound/cellulitis) Anesthesia History: No Prior Anesthetic Complications, Past Anesthesia ([place], EGD, ORIF clavicle) Alcohol Use: heavy (admits to 8-9 beers daily), recent Drug use: marijuana ("occasionally") Medications and Allergies Carbidopa/Levodopa ER 50/200 [Sinemet ER 50-200 Tab] 0.5 tab PO BID 01/01/19 [History] Omeprazole [PriLOSEC] 20 mg PO BID 01/01/19 [History] Potassium Chloride [K-Tab ER] 20 meq PO DAILY 01/01/19 [History] Sucralfate [Carafate] 1 gm PO QID 01/01/19 [History] Cyanocobalamin (B-12) [Vitamin B12] 1,000 mcg PO DAILY #30 tablet 01/05/19 [Rx] Folic Acid 1 mg PO DAILY #30 tablet 01/05/19 [Rx] Thiamine (B-1) [Vitamin B-1] 100 mg PO DAILY #30 tablet 01/05/19 [Rx] Vitamin B Complex/Vit C/Vit E [Stresstab] 1 each PO DAILY #30 tablet 01/05/19 [Rx] amLODIPine [Norvasc] 5 mg PO DAILY 03/06/19 [History] Allergy/AdvReac Type Severity Reaction Status Date / Time No Known Allergies Allergy Verified 03/06/19 19:24 - Meds/Allergy Pre-op Review Medications Reviewed: Yes Allergies Reviewed: Yes Beta Blockers on Current Med List: No Anesthesia Results - Labs 03/08/19 04:20 03/08/19 04:20 Laboratory Tests 03/08/19 04:20 Est GFR (Non-Af Amer) > 60 Calcium 8.8 Phosphorus 3.1 Magnesium 1.5 L Impressions Foot X-Ray 03/05/19 15:51 IMPRESSION: 1. Circumferential soft tissue swelling of the leg and ankle. No associated acute osseous abnormality. 2. No evidence of soft tissue gas or radiopaque foreign body. D/ / Tres Lowery MD / Tres Lowery MD Interpreting Provider: Tres Lowery MD Tibia/Fibula X-Ray 03/05/19 15:51 IMPRESSION: 1. Circumferential soft tissue swelling of the leg and ankle. No associated acute osseous abnormality. 2. No evidence of soft tissue gas or radiopaque foreign body. D/ / Tres Lowery MD / Tres Lowery MD Interpreting Provider: Tres Lowery MD - Imaging EKG: report reviewed (69bpm - Sinus rhythm RSR' in V1 or V2, probably normal variant ST elev, probable normal early repol pattern Electronically Signed On 01-03-2019 21:02:44 EDT by Kira Mckay) Anesthesia Exam Vital Signs Temp Pulse Resp BP Pulse Ox 03/09/19 15:08 98.3 F 66 20 135/81 95 03/09/19 11:41 98.1 F 75 20 133/78 95 03/09/19 09:57 17 97 03/09/19 06:59 97.5 F L 77 18 159/91 97 03/09/19 04:21 16 94 03/09/19 03:22 98.1 F 73 16 146/74 95 03/08/19 21:38 16 94 03/08/19 20:06 98.0 F 71 15 138/83 97 Intake and Output 03/09/19 03/09/19 03/09/19 07:59 15:59 23:59 Intake Total 350 / 570 220 / 570 Output Total 1025 / 1625 600 / 1625 Balance -675 / -1055 -380 / -1055 Intake: IV Fluids 350 / 450 100 / 450 Zosyn 3.375 GM In 0.9 % Sodium 100 / 200 100 / 200 Chloride (Mini-Bag +) 100 ML @ 25 mls/hr IVPB Q8HR [facility] Rx#: [id number] Vancocin 1,000 MG In 0.9 % 250 / 250 Sodium Chloride 250 ML @ 167 mls/hr IVPB Q12H [facility] Rx#: [id number] Oral 0 / 120 120 / 120 Output: Urine 1025 / 1625 600 / 1625 Other: Meal Breakfast Percent of Meal Consumed 50% Weight 71.6 kg Patient Weight 03/09/19 23:59 Weight 71.6 kg Height: 5'9" Weight: 157# BMI= 23 - HEENT Pupil (Motor): Pupils equal, EOMI Mallampati: III Teeth: Missing, Poor dentition Oral Opening: Greater than 3 - CHANGE OF ADDRESS CLERK LOC: Oriented CHANGE OF ADDRESS CLERK Motor: Normal RUE, Normal LUE, Normal RLE, Normal Face, Deficit LLE CHANGE OF ADDRESS CLERK Sensory: Normal: RUE, LUE, RLE, LLE, Face - Cardiac Rhythm: Regular Murmur: None - Pulmonary Breath Sounds: bilateral Clear Respiratory Effort: Symmetrical Anesthesia Assess/Plan ASA Score: 3 (Parkinsonism, HTN, Smoker, EtOH abuse, Hx CVA, Marijuana) Level of consciousness: Cooperative, Oriented, Tranquil Anesthetic Plan: General Monitoring Plan: Standard Monitors Recovery Plan: PACU Anes Supervising Prov Stmt: Pt seen/evaluated, R&B Discussed, questions answered and consent obtained. John Navarro MD
[2019-03-09] MEDS ORDERED: Melatonin 3 MG TABLET PO PRN (22:23)
[2019-03-10] MEDS: Ipratropium/Albuterol Neb 3 ML IH SCH ×4 (03:33→22:15)
[2019-03-10 03:47] LABS: Basophils # 0.1 K/mcL (0.0-0.2); Basophils % 0.7 %; Eosinophils # 0.4 K/mcL (0.0-0.6); Eosinophils % 5.9 %; Hematocrit 36.8 % (37.5-50.1); Hemoglobin 12.3 g/dL (12.9-16.9); Immature Granulocytes % 1.3 % (0-4); Lymphocytes # 2.1 K/mcL (0.6-4.6); Lymphocytes % 28.7 %; Mean Corpuscular HGB Conc 33.4 g/dL (31.6-35.5); Mean Corpuscular Hemoglobin 32.5 pg (28.0-33.3); Mean Corpuscular Volume 97.4 fL (83.0-100.0); Mean Platelet Volume 8.8 fL (9.4-12.4); Monocytes # 0.8 K/mcL (0.0-1.3); Monocytes % 10.4 %; Neutrophils # 3.9 K/mcL (1.6-8.9); Platelet Count 226 K/mcL (140-400); Red Blood Count 3.78 M/mcL (4.19-5.50); Red Cell Distribution Width 12.7 % (11.5-14.5); White Blood Count 7.4 K/mcL (4.3-11.1)
[2019-03-10 04:07] LABS: BUN/Creatinine Ratio 9 (6-26); Blood Urea Nitrogen 10 mg/dL (6-20); Carbon Dioxide 26 mEq/L (23-29); Chloride 95 mEq/L (98-107); Glucose 107 mg/dL (70-105); Magnesium 1.6 mg/dL (1.6-2.6); Osmolality,Calculated 270 (280-300); Potassium 3.9 mEq/L (3.5-5.1); Sodium 130 mEq/L (136-145); eGFR For African Americans > 60 (> 60); eGFR For Non-African Americans > 60 (> 60)
[2019-03-10 04:12] LABS: Platelet Estimate Normal (Normal)
[2019-03-10] MEDS ORDERED: Vancomycin 1,000 MG, 0.9 % Sodium Chloride 1,000 ML IR ONE ×2 (06:00→11:51)
[2019-03-10] MEDS: *HR* Heparin 5,000 UNIT/ML VIAL SQ SCH ×2 (08:19→18:42)
[2019-03-10] MEDS: Piperacillin/Tazobactam 3.375 GM in 0.9 % Sodium Chloride Mini Bag 100 ML IVPB SCH ×3 (08:38→23:19)
[2019-03-10] MEDS ORDERED: Lidocaine -MPF 2% 2 ML VIAL ONE (09:09)
[2019-03-10] MEDS ORDERED: *HR* Midazolam HCl 2 MG/2 ML VIAL ONE (09:10)
[2019-03-10] MEDS ORDERED: *HR* Propofol 200 MG/20 ML VIAL IVP ONE (09:10)
[2019-03-10] MEDS ORDERED: *HR* FentaNYL (PF) 100 MCG/2 ML VIAL ONE (09:10)
[2019-03-10] MEDS ORDERED: Ondansetron 4 MG/2 ML VIAL ONE (10:42)
[2019-03-10] MEDS ORDERED: Dexamethasone 4 MG/ML VIAL ONE (10:42)
--- NOTE | 2019-03-10 10:50 | Internal Med Progress Note ---
Hospitalist Progress Note - Encounter Date of Encounter: 03/10/19 Time of Encounter: 08:15 - Subjective Interval History: No acute events overnight, no fever/chills/N/V - Exam Vitals: Temp Pulse Resp BP Pulse Ox 98.3 F 65 15 140/92 98 03/10/19 07:00 03/10/19 10:15 03/10/19 10:15 03/10/19 10:15 03/10/19 10:15 Exam: Vitals: Reviewed General: Alert and oriented x4. In no acute distress. Cardiovascular: RRR, normal S1 & S2, no rubs, murmurs or gallops. Lungs: CTA b/l, no wheezes or crackles. Abdomen: Soft, non-tender, no rigidity. Extremities: L foot dressing c/d/i Neurological: No focal neurological abnormalities - Assessment and Plan (1) Cellulitis Current Visit: Yes Status: Acute (2) Liver cirrhosis Current Visit: No Status: Chronic (3) Alcohol abuse Current Visit: No Status: Chronic (4) Tobacco use disorder Current Visit: No Status: Chronic (5) GERD (gastroesophageal reflux disease) Current Visit: No Status: Chronic (6) Hyponatremia Current Visit: Yes Status: Acute (7) History of CVA (cerebrovascular accident) Current Visit: Yes Status: Acute (8) HTN (hypertension) Current Visit: Yes Status: Chronic (9) DVT prophylaxis Current Visit: Yes Status: Acute - Summary of Assessment and Plan Summary of Assessment and Plan: 53 YO male PMH of EtOH liver cirrhosis, CVA, HTN, who is admitted for L LE cellulitis. Assessment: 1. Purulent cellulitis of the left lower extr 2. Hyponatremia possible beer potomania 3. HTN 4. Alcohol abuse 5. DVT prophylaxis 6. GERD Plan - wound culture came back S. Aureus, P. mirabilis, Pseudomonas oleovorans, and 1 otherl GNR. Improving on zosyn, continue - podiatry input appreciated, for I&D today - continue analgesics - Blood cultures NGTD - heparin for DVT prophylaxis. - will likely be discharged to [facility] tomorrow on PO abx - Time Spent with Patient Total time spent is greater than 50% in coordination of care (as documented) at patient's floor/unit and/or counseling patient: 25 - 35 minutes Plan of Care Discussed with: patient Internal Medicine: Result - Labs CBC & Chem 7: 03/10/19 03:36 03/10/19 03:36 Labs: Short CBC 03/10/19 Range/Units 03:36 WBC 7.4 (4.3-11.1) K/mcL Hgb 12.3 L (12.9-16.9) g/dL Hct 36.8 L (37.5-50.1) % Plt Count 226 (140-400) K/mcL Neutrophils # 3.9 (1.6-8.9) K/mcL BMP 03/10/19 03:36 Sodium 130 L Potassium 3.9 Chloride 95 L Carbon Dioxide 26 BUN 10 Creatinine 1.06 Glucose 107 H Calcium 9.0 - ABG Interpretation ABG results: PT/INR, D-dimer PT 12.2 Seconds (9.4-12.1) H 03/06/19 06:11 Consult Discharge Plan - Plan Referrals: Dino Calabrese DO [Resident] - 03/18/19 1:20 pm (1) Cellulitis Qualifiers: Site of cellulitis: extremity Site of cellulitis of extremity: lower extremity Laterality: left Qualified Code(s): L03.116 - Cellulitis of left lower limb (2) Liver cirrhosis Qualifiers: Hepatic cirrhosis type: alcoholic cirrhosis Ascites presence: without ascites Qualified Code(s): K70.30 - Alcoholic cirrhosis of liver without ascites (5) GERD (gastroesophageal reflux disease) Qualifiers: Esophagitis presence: without esophagitis Qualified Code(s): K21.9 - Gastro- esophageal reflux disease without esophagitis (8) HTN (hypertension) Qualifiers: Hypertension type: unspecified Qualified Code(s): I10 - Essential (primary) hypertension
[2019-03-10] MEDS ORDERED: EPHEDrine 50 MG/ML VIAL ONE (10:52)
--- NOTE | 2019-03-10 11:37 | Orthopedic Operative Note ---
Date of procedure: 03/10/19 Pre-op diagnosis: left foot wound infection Post-op diagnosis: same Procedure: 03/10/19 11:36 1. Preparation wound bed for graft application left foot, 36cm surface area 2. Application of skin graft substitute left foot, 36cm surface area 03/10/19 16:47 Implants: Puraply graft 6cm x 9cm Complications: None Anesthesia: MAC, local Surgeon: Wesley Rosales Was there an credit assistant present: No Estimated blood loss (cc): 1 Tourniquet Time (Minutes): 0 Specimen: None Condition: stable Disposition: floor Procedure in Detail: 03/10/19 16:47 INDICATIONS AND CONSENT Camacho Vaughan is a 53-year-old male who initially presented with infected wounds of the left dorsal foot. There was signs of fibrotic and necrotic tissue as well as mild erythema to the foot. He is unsure of exactly what caused the wounds and denies any previous treatment. He noted severe pain with attempted bedside debridement of the wounds, therefore we elected to proceed with surgical debridement of the wound and preparation of the wound bed for skin graft substitute application. XRays of the foot showed no evidence of soft tissue gas or osteomyelitis. We discussed the above procedures in detail. This included a discussion on the indications, contraindications, and possible complications including but not limited to: infection, non-healing wound, pain, swelling, bleeding, blood clots, heart complications, nerve injury, tendon injury, vascular injury, loss of limb, loss of life, graft failure, and need for further surgery. We also reviewed the expected post operative course, including a discussion on the partial-weightbearing status after this procedure. He related understanding of our discussion regarding this surgery. All questions were answered to his satisfaction, and a proper written informed consent was obtained, signed, and placed in the chart. No guarantees were given, stated or implied, as to the outcome of this procedure. PROCEDURE IN DETAIL The patient was seen in the pre-operative holding area by Anesthesia, where he was consented for MAC with local block. The patient was then brought back to the operative suite and placed on the operating room table in the supine position. A sign-in was performed. MAC was then initiated per Anesthesia protocol. Next, the left lower leg was scrubbed, prepped, and draped in the usual aseptic manner. A [place] Time-Out was performed, and all parties in the room agreed. A total of 5 mL of 1% lidocaine plain and 5 mL of 0.5% Marcaine plain were injected to the left dorsal foot wound. A curette was then used to sharply debride the wound to the level of subcutaneous tissue but not below the level of fascia. All fibrotic tissue was sharply excised using a curette to the level of healthy, bleeding wound tissue. Post-debridement and wound preparation measurement was 6 cm x 6 cm x 0.1 cm depth for a total of 36 cm surface area. The wound was then irrigated with 3 liters of normal saline using cysto tubing. A 6 cm x 9 cm Puraply graft was then applied to the wound and secured using Steri-Strips. A dry, sterile dressing was then applied, which consisted of: adaptic, 4x4's, Kerlix fluffs, ABDs, and Kerlix roll with HAKAN wrap. Capillary refill time of the toes on the left foot was also noted to be brisk at this time. A sign-out was performed. The patient tolerated anesthesia and the procedure well, and was transferred to PAC-U with vital signs stable and vascular status intact to the left lower extremity. Needle and sponge counts were correct X 2 at the end of the case. Dr. Wesley Rosales was present, scrubbed, and participated in all vital aspects of the procedure. After a brief stay in PAC-U, the patient will be admitted back to the floor for continued monitoring. He will discharge with PO antibiotics based on previous wound culture sensitivities. He will follow up in the wound care clinic after discharge. He will be weightbearing as tolerated using a surgical shoe at discharge. 03/10/19 16:50 03/10/19 16:52 03/10/19 16:56
--- NOTE | 2019-03-10 11:48 | Anesthesia Evaluation Post Op ---
Date of Encounter: 03/10/19 Time of Encounter: 11:47 - Vital Signs Vital Signs: Vital Signs/O2 Sat, Most Current Temp Pulse Resp BP Pulse Ox 97.8 F 84 20 133/73 97 03/10/19 11:32 03/10/19 11:32 03/10/19 11:32 03/10/19 11:32 03/10/19 11:32 - Lungs Lungs: Clear Ascult./Percussion - Airway Airway: Non-obstructed - Cardiovascular Regular Rate - Mental Status Mental Status: Alert & Oriented, Answers Appropriately - Pain Pain Scale: 1 Pain Scale used: Numeric (1 - 10) - Nausea Vomiting Nausea Vomiting: Not Present - Hydration Hydration: Ice chips, Has not voided - Discharge PostOp Status: Transfer Patient to floor
[2019-03-10] MEDS ORDERED: Ondansetron 4 MG/2 ML VIAL IVP PRN (11:51)
[2019-03-10] MEDS ORDERED: Acetaminophen 325 MG TABLET PO PRN (11:51)
[2019-03-10] MEDS ORDERED: Melatonin 3 MG TABLET PO PRN (11:51)
[2019-03-10] MEDS ORDERED: Naloxone 0.4 MG/ML INJ IVP PRN (11:51)
[2019-03-10] MEDS ORDERED: Albuterol 2.5 MG/3 ML NEBULIZER IH PRN (11:51)
[2019-03-10] MEDS: *HR* HYDROcodone/Acet 5/325 mg TABLET PO PRN ×2 (12:31→18:49)
[2019-03-10] MEDS: Sucralfate 1 GM TABLET PO SCH ×4 (12:47→20:28)
[2019-03-10] MEDS: Carbidopa/Levodopa ER 50/200 TABLET PO SCH ×2 (12:47→20:28)
[2019-03-10] MEDS: Folic Acid 1 MG TABLET PO SCH (12:49)
[2019-03-10] MEDS: Magnesium Oxide 400 MG TABLET PO SCH (12:49)
[2019-03-10] MEDS: Thiamine (B-1) 100 MG TABLET PO SCH (12:50)
[2019-03-10] MEDS: amLODIPine 5 MG TABLET PO SCH (12:50)
[2019-03-10] MEDS: Vitamin B Complex/Vit C/Vit E 1 EACH TABLET PO SCH (12:50)
--- NOTE | 2019-03-10 14:48 | Electrocardiograph Report ---
[place] [place] [facility] Date: 2019-03-05 Pat Name: Camacho Vaughan Department: 115 Room: 3A11 Gender: M Research Compliance Specialist: SHAW : 1965 Requested By: Roberto Carlos Rizvi Order Number: [id number] John MD: Mike Lei Measurements Intervals [place] Rate: 94 P: 56 [place]: 124 QRS: 45 QRSD: 95 T: 57 QT: 353 QTc: 404 Interpretive Statements SINUS RHYTHM Electronically Signed On 03-10-2019 14:47:16 EDT by Mike Lei
[2019-03-10] MEDS ORDERED: *HR* OxyCODONE Immed Rel 5 MG TABLET PO ONE (20:08)
[2019-03-11] MEDS: *HR* HYDROcodone/Acet 5/325 mg TABLET PO PRN ×2 (01:20→09:13)
[2019-03-11] MEDS: Ipratropium/Albuterol Neb 3 ML IH SCH ×2 (03:54→10:54)
[2019-03-11] MEDS: Sucralfate 1 GM TABLET PO SCH (06:33)
[2019-03-11 06:34] VITALS: BP 145/75
[2019-03-11] MEDS: *HR* Heparin 5,000 UNIT/ML VIAL SQ SCH (06:34)
--- NOTE | 2019-03-11 08:53 | Podiatry Progress Note ---
Date of Encounter: 03/11/19 Time of Encounter: 08:40 - Assessment and Plan (1) Tobacco use disorder Current Visit: No Status: Chronic Assessment: -Smokes 1/2 ppd for unknown number of years Plan: -Smoking cessation to promote wound healing and prevent further complication (2) Cellulitis Current Visit: Yes Status: Acute Assessment: -Dressing dry and intact and no strike through noted -Cap refill less than 3 seconds to all digits -WBC 7.4 -ESR 37, CRP 77 -X-ray of left foot/tib/fib showed circumferential soft tissue swelling of the leg and ankle. No associated acute osseous abnormality. No evidence of soft tissue gas or radiopaque foreign body Plan: -May discharge to SNF/ECF today -Do not remove dressing unless becomes saturated, keep skin graft in place -Follow up next Thursday03/16/[address] office with Dr. Rosales or ORDER SELECTOR, please schedule appointment prior to discharge Qualifiers: Site of cellulitis: extremity Site of cellulitis of extremity: lower extremity Laterality: left Qualified Code(s): L03.116 - Cellulitis of left lower limb Subjective Interval history: Post op day #1 1. Preparation wound bed for graft application left foot, 36cm surface area 2. Application of skin graft substitute left foot, 36cm surface area by Dr. Rosales on 03/10/2019 Patient is alert and oriented x 3 and no acute distress noted. He reports pain to left foot. Patient denies any chest pain, shortness of breath, or calf pain. He denies any fever, chills, nausea, vomiting, or diarrhea. Objective - Vital Signs Vital Signs: Vital Signs Temp Pulse Resp BP Pulse Ox 03/11/19 06:30 97.9 F 79 15 145/75 97 03/11/19 03:54 17 96 03/11/19 03:11 97.6 F 74 20 135/77 95 03/10/19 23:21 97.8 F 88 14 128/73 96 03/10/19 22:15 18 97 03/10/19 20:28 97 03/10/19 19:11 98.1 F 91 16 125/76 97 03/10/19 16:35 18 94 03/10/19 15:00 90 134/82 03/10/19 13:53 87 120/76 08/15/19 12:54 90 159/95 03/10/19 12:30 69 153/76 03/10/19 11:54 97.6 F 67 14 153/81 94 03/10/19 11:32 97.8 F 84 20 133/73 97 03/10/19 11:22 75 15 131/77 97 03/10/19 11:12 60 15 93/60 97 03/10/19 11:02 98.4 F 66 15 95/59 95 03/10/19 10:15 65 15 140/92 98 Intake and Output 03/10/19 03/11/19 03/11/19 23:59 07:59 15:59 Intake Total 540 / 640 100 / 100 Output Total 200 / 651 Balance 340 / -11 100 / 100 Intake: IV Fluids 100 / 200 100 / 100 Zosyn 3.375 GM In 0.9 % Sodium 100 / 100 100 / 100 Chloride (Mini-Bag +) 100 ML @ 25 mls/hr IVPB Q8HR [facility] Rx#: [id number] Oral 440 / 440 Output: Urine 200 / 650 Other: Meal Dinner Percent of Meal Consumed 100% Weight 74.6 kg Patient Weight 03/11/19 23:59 Weight 74.6 kg - Exam Exam: Constitutional: Alert and oriented x 3, no acute distress noted Vascular: cap refill less than 3 seconds to all digits, no pain with calf squeeze, no edema noted Dermatological: Dressing dry and intact to left foot, no strike through noted, no swelling above or below dressing Neurological: Sensation intact, proprioception intact, normal plantar reflex Musculoskeletal: 4/5 muscle strength, normal muscle tone - Lab Result Diagrams: 03/10/19 03:36 03/10/19 03:36 Labs: Abnormal lab results RBC 3.78 M/mcL (4.19-5.50) L 03/10/19 03:36 Hgb 12.3 g/dL (12.9-16.9) L 03/10/19 03:36 Hct 36.8 % (37.5-50.1) L 03/10/19 03:36 MCV 100.6 fL (83.0-100.0) H 03/08/19 04:20 MPV 8.8 fL (9.4-12.4) L 03/10/19 03:36 ESR 37 mm/hr (0-10) H 03/07/19 03:36 PT 12.2 Seconds (9.4-12.1) H 03/06/19 06:11 VBG pCO2 33 mmHg (41-51) L 03/05/19 18:18 VBG pO2 106 mmHg (25-50) H 03/05/19 18:18 Sodium 130 mEq/L (136-145) L 03/10/19 03:36 Potassium 3.3 mEq/L (3.5-5.1) L 03/07/19 07:37 Chloride 95 mEq/L (98-107) L 03/10/19 03:36 Carbon Dioxide 20 mEq/L (23-29) L 03/05/19 23:10 Creatinine 1.33 mg/dL (0.70-1.30) H 03/06/19 22:58 Est GFR (Non-Af Amer) 56 (> 60) L 03/06/19 22:58 Glucose 107 mg/dL (70-105) H 03/10/19 03:36 POC Glucose 126 mg/dL (70-99) H 03/06/19 18:39 Calculated Osmolality 270 (280-300) L 03/10/19 03:36 Lactic Acid 3.8 mmol/L (0.5-2.2) H 03/05/19 15:59 Calcium 8.1 mg/dL (8.6-10.3) L 03/07/19 07:37 Magnesium 1.5 mg/dL (1.6-2.6) L 03/08/19 04:20 Total Bilirubin 1.2 mg/dL (0.3-1.0) H 03/06/19 06:11 Direct Bilirubin 0.4 mg/dL (0.0-0.2) H 03/06/19 06:11 C-Reactive Protein 77 mg/L (Less than 10) H 03/07/19 03:36 Serum Total Protein 5.7 g/dL (6.4-8.9) L 03/06/19 06:11 Albumin 3.1 g/dL (3.5-5.7) L 03/06/19 06:11 Beta-Hydroxybutyric Acd > 2.00 mmol/L (0.02-0.27) H 03/05/19 18:05 Urine Protein 30 mg/dL (Neg-Trace) H 03/05/19 16:45 Urine Ketones 15 mg/dL (Negative) H 03/05/19 16:45 Ur Squamous Epith Cells Many per lpf (None-Few) H 03/05/19 16:45 Salicylates < 2.5 mg/dL (15.0-30.0) L 03/05/19 18:05 Acetaminophen < 10 mcg/mL (10-20) L 03/05/19 18:05 Ethyl Alcohol 30 mg/dL (Less than 10) H 03/05/19 17:07 Microbiology, Last 48 Hours 03/05/19 16:05 Blood Culture - Final Peripheral Venipuncture No growth. Final report. 03/05/19 15:59 Blood Culture - Final Peripheral Venipuncture No growth. Final report. 03/05/19 18:13 Wound Culture - Preliminary Left Foot Proteus mirabilis Gram Negative [place]#2 Pseudomonas oleovorans Staphylococcus aureus 03/05/19 19:17 Anaerobic Culture - Preliminary Left Foot Culture is incubating. Consult Discharge Plan - Plan Referrals: Dino Calabrese DO [Resident] - 03/25/19 8:20 am Prescriptions: Sulfamethoxazole/Trimeth DS [Bactrim DS] 1 each PO BID 5 Days #10 tablet
[2019-03-11] MEDS ORDERED: Thiamine (B-1) 100 MG TABLET PO SCH (09:00)
[2019-03-11] MEDS ORDERED: Vitamin B Complex/Vit C/Vit E 1 EACH TABLET PO SCH (09:00)
[2019-03-11] MEDS ORDERED: amLODIPine 5 MG TABLET PO SCH (09:00)
[2019-03-11] MEDS ORDERED: Folic Acid 1 MG TABLET PO SCH (09:00)
[2019-03-11] MEDS ORDERED: Magnesium Oxide 400 MG TABLET PO SCH (09:00)
--- NOTE | 2019-03-11 09:16 | Discharge Summary ---
- NOTES TO OUTPATIENT PROVIDER Notes to Outpatient Provider: Follow-up with podiatry as an outpatient on 03/16 Orders not resulted at time of discharge: Pending orders 03/05/19 18:13 Culture,Wound [RM] Stat 03/05/19 19:17 Culture,Anaerobic [RM] Stat Date of Encounter: 03/11/19 Time of Encounter: 07:15 - Discharge Diagnosis (1) Cellulitis Priority: Primary Status: Acute Qualifiers: Site of cellulitis: extremity Site of cellulitis of extremity: lower extremity Laterality: left Qualified Code(s): L03.116 - Cellulitis of left lower limb (2) Liver cirrhosis Priority: Secondary Status: Chronic Qualifiers: Hepatic cirrhosis type: alcoholic cirrhosis Ascites presence: without ascites Qualified Code(s): K70.30 - Alcoholic cirrhosis of liver without ascites (3) Alcohol abuse Priority: Secondary Status: Chronic (4) Tobacco use disorder Priority: Secondary Status: Chronic (5) GERD (gastroesophageal reflux disease) Priority: Secondary Status: Chronic Qualifiers: Esophagitis presence: without esophagitis Qualified Code(s): K21.9 - Gas tro-esophageal reflux disease without esophagitis (6) Hyponatremia Priority: Secondary Status: Acute (7) History of CVA (cerebrovascular accident) Priority: Secondary Status: Acute (8) HTN (hypertension) Priority: Secondary Status: Chronic Qualifiers: Hypertension type: unspecified Qualified Code(s): I10 - Essential (primary) hypertension (9) DVT prophylaxis Priority: Secondary Status: Acute Hospital course: Mr. Vaughan is a 53 year old male with PMH of EtOH liver cirrhosis, CVA, HTN, who was admitted for purulent L LE cellulitis. Clinically improved with broad spectrum abx and wound culture came back +ve for MSSA, Proteus, Pseudomonas oleovorans, and another GNR species. Briefly reviewed the culture result with the ID physician and he will be discharged on PO Bactrim to complete a total of 10 days of abx. In view of the extent of superficial wound and to promote healing, he underwent skin graft application on 03/10 uneventfully by podiatry. He will follow up with podiatry as outpatient on 03/16 for dressing change. Discharge discussed with: patient, nurse, case management, network security consultant - Time Spent with Patient Total time spent providing and/or coordinating discharge services: 32 mins - Discharge Medications Prescriptions: New Sulfamethoxazole/Trimeth DS [Bactrim DS] 1 each PO BID 5 Days #10 tablet HYDROcodone/Acet 5/325 mg [[place] 5-325 mg] 1 tab PO Q6HR PRN 3 Days #15 tablet PRN Reason: Pain Continued Carbidopa/Levodopa ER 50/200 [Sinemet ER 50-200 Tab] 0.5 tab PO BID Sucralfate [Carafate] 1 gm PO QID Potassium Chloride [K-Tab ER] 20 meq PO DAILY Omeprazole [PriLOSEC] 20 mg PO BID Folic Acid 1 mg PO DAILY #30 tablet Vitamin B Complex/Vit C/Vit E [Stresstab] 1 each PO DAILY #30 tablet Thiamine (B-1) [Vitamin B-1] 100 mg PO DAILY #30 tablet Cyanocobalamin (B-12) [Vitamin B12] 1,000 mcg PO DAILY #30 tablet amLODIPine [Norvasc] 5 mg PO DAILY Home Medications: Carbidopa/Levodopa ER 50/200 [Sinemet ER 50-200 Tab] 0.5 tab PO BID 01/01/19 [History] Omeprazole [PriLOSEC] 20 mg PO BID 01/01/19 [History] Potassium Chloride [K-Tab ER] 20 meq PO DAILY 01/01/19 [History] Sucralfate [Carafate] 1 gm PO QID 01/01/19 [History] Cyanocobalamin (B-12) [Vitamin B12] 1,000 mcg PO DAILY #30 tablet 01/05/19 [Rx] Folic Acid 1 mg PO DAILY #30 tablet 01/05/19 [Rx] Thiamine (B-1) [Vitamin B-1] 100 mg PO DAILY #30 tablet 01/05/19 [Rx] Vitamin B Complex/Vit C/Vit E [Stresstab] 1 each PO DAILY #30 tablet 01/05/19 [Rx] amLODIPine [Norvasc] 5 mg PO DAILY 03/06/19 [History] Sulfamethoxazole/Trimeth DS [Bactrim DS] 1 each PO BID 5 Days #10 tablet 03/10/19 [Rx] HYDROcodone/Acet 5/325 mg [[place] 5-325 mg] 1 tab PO Q6HR PRN 3 Days #15 tablet 03/11/19 [Rx] Allergies/Adverse Reactions: Allergy/AdvReac Type Severity Reaction Status Date / Time No Known Allergies Allergy Verified 03/06/19 19:24 Date of admission: 03/08/19 14:36 Primary care physician: PCP NONE Consults: 03/05/19 21:15 Consult to Horticultural Farm Manager [CONS] Routine Reason for SW Consult: Alcoholism 03/07/19 15:59 Consult to Horticultural Farm Manager [CONS] Routine Reason for SW Consult: Wants ECF placement: 1st choice [facility] and 2nd choice [facility]. [facility] - requesting he is unable to take care of himself and his nephew works time broker and sister unable to care for him. 03/07/19 16:05 Consult to Physical Therapy [CONS] Routine Comment: Evaluate, develop and implement POC Reason for Consult: Patient wants ECF placement for medical care - listed as [facility] 4, insurance wanting PT/OT eval. Does patient have active BEDREST order?: No Is patient medically & hemodynamically stable?: Yes Patient assessed for mobility or mobilized this visit?: No 03/08/19 16:10 Consult to Podiatry [CONS] Routine Consulting Provider: Pod[facility] Reason for Consult: wound on the plantar aspect of the left foot Call Completed: Yes - Constitutional Vitals: Temp Pulse Resp BP Pulse Ox 97.9 F 79 15 145/75 97 03/11/19 06:30 03/11/19 06:30 03/11/19 06:30 03/11/19 06:30 03/11/19 06:30 General appearance: Present: cooperative, A&O X 3, pleasant, no acute distress, answers questions appropriately Exam: Vitals: Reviewed General: Alert and oriented x4. In no acute distress. Cardiovascular: RRR, normal S1 & S2, no rubs, murmurs or gallops. Lungs: CTA b/l, no wheezes or crackles. Abdomen: Soft, non-tender, no rigidity. Extremities: L foot dressing c/d/i Neurological: No focal neurological abnormalities - Patient Status Disposition: Transfer SNF Condition: Fair Overall status at discharge: patient is progressing back to baseline - Discharge Instructions Instructions: Cellulitis (DC), Chronic Hypertension (DC) Follow Up With: Dino Calabrese DO [Resident] - 03/25/19 8:20 am McFerren,Wesley P, DPM [Partnered Physician] - - Diet and Activity Activity: as per physical therapy Diet: regular diet
--- NOTE | 2019-03-11 09:21 | Physician Discharge Referral ---
ExtendedCare Referral Info Institutional Level of Care: Skilled - Diagnosis (1) Cellulitis Priority: Primary Status: Acute (2) Liver cirrhosis Priority: Secondary Status: Chronic (3) Alcohol abuse Priority: Secondary Status: Chronic (4) Tobacco use disorder Priority: Secondary Status: Chronic (5) GERD (gastroesophageal reflux disease) Priority: Secondary Status: Chronic (6) Hyponatremia Priority: Secondary Status: Acute (7) History of CVA (cerebrovascular accident) Priority: Secondary Status: Acute (8) HTN (hypertension) Priority: Secondary Status: Chronic (9) DVT prophylaxis Priority: Secondary Status: Acute - Transfer Medications Prescriptions: Sulfamethoxazole/Trimeth DS [Bactrim DS] 1 each PO BID 5 Days #10 tablet HYDROcodone/Acet 5/325 mg [[place] 5-325 mg] 1 tab PO Q6HR PRN 3 Days #15 tablet PRN Reason: Pain Home Medications: Carbidopa/Levodopa ER 50/200 [Sinemet ER 50-200 Tab] 0.5 tab PO BID 01/01/19 [History] Omeprazole [PriLOSEC] 20 mg PO BID 01/01/19 [History] Potassium Chloride [K-Tab ER] 20 meq PO DAILY 01/01/19 [History] Sucralfate [Carafate] 1 gm PO QID 01/01/19 [History] Cyanocobalamin (B-12) [Vitamin B12] 1,000 mcg PO DAILY #30 tablet 01/05/19 [Rx] Folic Acid 1 mg PO DAILY #30 tablet 01/05/19 [Rx] Thiamine (B-1) [Vitamin B-1] 100 mg PO DAILY #30 tablet 01/05/19 [Rx] Vitamin B Complex/Vit C/Vit E [Stresstab] 1 each PO DAILY #30 tablet 01/05/19 [Rx] amLODIPine [Norvasc] 5 mg PO DAILY 03/06/19 [History] Sulfamethoxazole/Trimeth DS [Bactrim DS] 1 each PO BID 5 Days #10 tablet 03/10/19 [Rx] HYDROcodone/Acet 5/325 mg [[place] 5-325 mg] 1 tab PO Q6HR PRN 3 Days #15 tablet 03/11/19 [Rx] Allergies/Adverse Reactions: Allergy/AdvReac Type Severity Reaction Status Date / Time No Known Allergies Allergy Verified 03/06/19 19:24 - Respiratory Orders Smoking Cessation: Smoking cessation has been advised. For more information, call the [place] Tobacco Quit Line at 4-766-SYKO-NOW. - Advance Directives Code Status: Full Code - Rehabiliation Orders Rehab Orders: Evaluation for Physical Therapy, Evaluation for Occupational Therapy - Treatments List/Other: No dressing change till podiatry appt on 03/16 - Diet Orders Regular CERTIFICATION: I certify that the transfer of the above named patient to an Extended Care Facility is necessary for the continuing treatment of the diagnosis listed. The above information is true and accurate reflection of patient's current condition. Confidential - Redisclosure prohibited without a patient's written consent.
[2019-03-11] MEDS: Carbidopa/Levodopa ER 50/200 TABLET PO SCH (10:13)
== END 2019-03-11 12:39 | DRG 361 ==
LOC: EMEROOARM 15:39 → 3ANU 15:39 → SUATTDRO 19:46 → 3ANU 20:25 → SUATTDRO 03-08 14:36
PROVIDERS: ADMIT Internal Medicine; ATTEND Internal Medicine

== ENCOUNTER 2019-06-07 18:32 | Inpatient (IN) ==
[2019-06-07] MEDS ORDERED: 0.9 % Sodium Chloride 1,000 ML IVC ONE ×2 (18:47→20:05)
[2019-06-07] MEDS ORDERED: Azithromycin 500 MG in 0.9 % Sodium Chloride 250 ML IVPB ONE (18:50)
[2019-06-07] MEDS ORDERED: Ketorolac 15 MG/ML VIAL IVP ONE (18:50)
[2019-06-07] MEDS ORDERED: cefTRIAXone 2,000 MG in Water for inj. (sterile) 20 ML IVP ONE (18:50)
[2019-06-07] MEDS ORDERED: Ipratropium/Albuterol Neb 3 ML IH ONE (18:51)
[2019-06-07] MEDS ORDERED: methylPREDNISolone 125 MG/2 ML VIAL IVP ONE (18:51)
[2019-06-07 19:26] LABS: Basophils % 0.2 %; Eosinophils % 0.2 %; Hematocrit 43.4 % (37.5-50.1); Hemoglobin 15.2 g/dL (12.9-16.9); Immature Granulocytes % 0.6 % (0-4); Lymphocytes # 0.7 K/mcL (0.6-4.6); Mean Corpuscular Hemoglobin 33.4 pg (28.0-33.3); Mean Corpuscular Volume 95.4 fL (83.0-100.0); Mean Platelet Volume 10.3 fL (9.4-12.4); Monocytes # 0.4 K/mcL (0.0-1.3); Monocytes % 3.5 %; Neutrophils # 10.4 K/mcL (1.6-8.9); Platelet Count 233 K/mcL (140-400); Red Blood Count 4.55 M/mcL (4.19-5.50); Red Cell Distribution Width 12.7 % (11.5-14.5); Segmented Neutrophils % 89.5 %; White Blood Count 11.6 K/mcL (4.3-11.1)
[2019-06-07 19:53] LABS: BUN/Creatinine Ratio 9 (6-26); Blood Urea Nitrogen 8 mg/dL (6-20); Calcium 9.3 mg/dL (8.6-10.3); Carbon Dioxide 23 mEq/L (23-29); Chloride 91 mEq/L (98-107); Glucose 115 mg/dL (70-105); Osmolality,Calculated 261 (280-300); Potassium 3.9 mEq/L (3.5-5.1); Sodium 126 mEq/L (136-145); eGFR For African Americans > 60 (> 60); eGFR For Non-African Americans > 60 (> 60)
[2019-06-07 20:44] LABS: Prothrombin Time 11.4 Seconds (9.4-12.1)
[2019-06-07] MEDS ORDERED: Aspirin 81 MG TAB.CHEW PO STA (21:01)
[2019-06-07 21:10] LABS: Alanine Aminotransferase 6 Units/L (7-52); Albumin 4.3 g/dL (3.5-5.7); Albumin/Globulin Ratio 1.3 (1.1-2.2); Alkaline Phosphatase 83 Units/L (34-104); Aspartate Amino Transferase 17 Units/L (13-39); Bilirubin,Direct 0.1 mg/dL (0.0-0.2); Bilirubin,Indirect 0.6 mg/dL (0.0-1.0); Bilirubin,Total 0.7 mg/dL (0.3-1.0); Globulin 3.2 g/dL (2.4-3.5); Total Protein 7.5 g/dL (6.4-8.9)
[2019-06-07] MEDS ORDERED: *HR* Heparin 5,000 UNIT/ML VIAL IVP ONE (21:14)
[2019-06-07] MEDS ORDERED: *HR* Heparin 5,000 UNIT/ML VIAL IVP PRN ×2 (21:14)
[2019-06-07] MEDS ORDERED: Morphine Sulfate 2 MG/ML SYRINGE IVP ONE (21:23)
[2019-06-07 21:47] LABS: Hematocrit 40.3 % (37.5-50.1); Hemoglobin 14.2 g/dL (12.9-16.9); Mean Corpuscular HGB Conc 35.2 g/dL (31.6-35.5); Mean Corpuscular Hemoglobin 33.1 pg (28.0-33.3); Mean Corpuscular Volume 93.9 fL (83.0-100.0); Mean Platelet Volume 10.3 fL (9.4-12.4); Platelet Count 201 K/mcL (140-400); Red Blood Count 4.29 M/mcL (4.19-5.50); Red Cell Distribution Width 12.7 % (11.5-14.5); White Blood Count 11.8 K/mcL (4.3-11.1)
[2019-06-07 21:54] LABS: Prothrombin Time 11.4 Seconds (9.4-12.1)
[2019-06-07] MEDS: Heparin 25,000 UNIT/250 ML D5W 25,000 UNIT/250 ML IV.SOLN IVC SCH (22:11)
[2019-06-07 23:29] LABS: Bilirubin,Urine Negative (Negative); Blood,Urine Negative (Negative); Clarity,Urine Clear (Clear); Color,Urine Yellow (Yellow); Glucose,Urine (UA) Normal (Normal); Ketones,Urine 40 mg/dL (Negative); Leukocyte Esterase,Urine Negative (Negative); Nitrite,Urine Negative (Negative); Protein,Urine Trace mg/dL (Neg-Trace); Specific Gravity,Urine 1.021 (1.010-1.025); Urobilinogen,Urine Normal (Normal)
[2019-06-07 23:37] LABS: Sodium, Urine 114.9 mEq/L
[2019-06-08] MEDS ORDERED: Naloxone 0.4 MG/ML INJ IVP PRN (00:23)
[2019-06-08] MEDS ORDERED: *HR* LORazepam 2 MG/ML VIAL IVP PRN ×3 (01:06)
[2019-06-08] MEDS ORDERED: Acetaminophen 325 MG TABLET PO PRN (01:19)
[2019-06-08] MEDS: Azithromycin 500 MG in 0.9 % Sodium Chloride 250 ML IVPB SCH (01:19)
[2019-06-08 02:11] LABS: Adenovirus Not Detected (Not Detect); Coronavirus 229E Not Detected (Not Detect); Coronavirus HKU1 Not Detected (Not Detect); Coronavirus NL63 Not Detected (Not Detect); Coronavirus OC43 Not Detected (Not Detect); Human Metapneumovirus Not Detected (Not Detect)
[2019-06-08 02:12] LABS: Bordetella Pertussis Not Detected (Not Detect); Chlamydophila pneumoniae Not Detected (Not Detect); Human Rhinovirus/Enterovirus Not Detected (Not Detect); Influenza A Subtype 2009 H1 Not Detected (Not Detect); Influenza A Untypeable Not Detected (Not Detect); Influenza B Not Detected (Not Detect); Mycoplasma pneumoniae Not Detected (Not Detect); Parainfluenza Virus 1 DETECTED (Not Detect); Parainfluenza Virus 2 Not Detected (Not Detect); Parainfluenza Virus 3 Not Detected (Not Detect); Parainfluenza Virus 4 Not Detected (Not Detect); Respiratory Syncytial Virus DETECTED (Not Detect)
[2019-06-08 04:31] LABS: Basophils % 0.1 %; Hematocrit 40.2 % (37.5-50.1); Hemoglobin 13.4 g/dL (12.9-16.9); Immature Granulocytes % 0.6 % (0-4); Lymphocytes # 0.5 K/mcL (0.6-4.6); Lymphocytes % 4.4 %; Mean Corpuscular HGB Conc 33.3 g/dL (31.6-35.5); Mean Corpuscular Hemoglobin 32.5 pg (28.0-33.3); Mean Corpuscular Volume 97.6 fL (83.0-100.0); Mean Platelet Volume 10.4 fL (9.4-12.4); Monocytes # 0.1 K/mcL (0.0-1.3); Monocytes % 0.8 %; Neutrophils # 10.2 K/mcL (1.6-8.9); Platelet Count 193 K/mcL (140-400); Red Blood Count 4.12 M/mcL (4.19-5.50); Red Cell Distribution Width 12.6 % (11.5-14.5); Segmented Neutrophils % 94.1 %; White Blood Count 10.8 K/mcL (4.3-11.1)
[2019-06-08 04:51] LABS: BUN/Creatinine Ratio 11 (6-26); Blood Urea Nitrogen 12 mg/dL (6-20); Calcium 8.8 mg/dL (8.6-10.3); Carbon Dioxide 23 mEq/L (23-29); Chloride 98 mEq/L (98-107); Glucose 191 mg/dL (70-105); Osmolality,Calculated 277 (280-300); Potassium 3.8 mEq/L (3.5-5.1); Sodium 131 mEq/L (136-145); eGFR For African Americans > 60 (> 60); eGFR For Non-African Americans > 60 (> 60)
[2019-06-08] MEDS: Vitamin B Complex/Vit C/Vit E 1 EACH TABLET PO SCH (08:26)
[2019-06-08] MEDS: Folic Acid 1 MG TABLET PO SCH (08:27)
[2019-06-08] MEDS: Thiamine (B-1) 100 MG TABLET PO SCH (08:27)
[2019-06-08] MEDS: Carbidopa/Levodopa ER 50/200 TABLET PO SCH ×2 (08:27→20:33)
[2019-06-08] MEDS: Sucralfate 1 GM TABLET PO SCH ×4 (08:27→20:33)
[2019-06-08] MEDS: Cyanocobalamin (B-12) 1,000 MCG TABLET PO SCH (08:27)
[2019-06-08] MEDS: Aspirin 81 MG TAB.CHEW PO SCH (10:07)
[2019-06-08] MEDS: Benzonatate 100 MG CAPSULE PO PRN ×2 (11:11→20:33)
[2019-06-08] MEDS ORDERED: Saline Nasal Spray 44 ML BOTTLE NS PRN (16:23)
[2019-06-08] MEDS: Levalbuterol Neb 0.63 MG/3 ML IH SCH ×2 (16:40→23:00)
[2019-06-08] MEDS: cefTRIAXone 1,000 MG in Water for inj. (sterile) 10 ML IVP SCH (17:16)
[2019-06-08] MEDS: Menthol 9.1 MG LOZENGE PO PRN ×2 (17:18→20:34)
[2019-06-08] MEDS: Thiamine (B-1) 100 MG, Folic Acid 1 MG, MVI, adult with vitamin K 10 ML in 0.9 % Sodi... IVPB SCH (18:25)
[2019-06-09] MEDS: Azithromycin 500 MG in 0.9 % Sodium Chloride 250 ML IVPB SCH (01:03)
[2019-06-09] MEDS: Heparin 25,000 UNIT/250 ML D5W 25,000 UNIT/250 ML IV.SOLN IVC SCH (03:31)
[2019-06-09] MEDS: Levalbuterol Neb 0.63 MG/3 ML IH SCH ×5 (03:57→21:22)
[2019-06-09 05:48] LABS: Basophils % 0.2 %; Hematocrit 40.2 % (37.5-50.1); Hemoglobin 13.2 g/dL (12.9-16.9); Immature Granulocytes % 0.5 % (0-4); Lymphocytes # 1.6 K/mcL (0.6-4.6); Lymphocytes % 12.6 %; Mean Corpuscular HGB Conc 32.8 g/dL (31.6-35.5); Mean Corpuscular Hemoglobin 32.7 pg (28.0-33.3); Mean Corpuscular Volume 99.5 fL (83.0-100.0); Mean Platelet Volume 10.8 fL (9.4-12.4); Monocytes # 0.7 K/mcL (0.0-1.3); Monocytes % 5.5 %; Neutrophils # 10.5 K/mcL (1.6-8.9); Platelet Count 186 K/mcL (140-400); Red Blood Count 4.04 M/mcL (4.19-5.50); Segmented Neutrophils % 81.2 %; White Blood Count 12.9 K/mcL (4.3-11.1)
[2019-06-09 06:04] LABS: BUN/Creatinine Ratio 16 (6-26); Blood Urea Nitrogen 13 mg/dL (6-20); Calcium 8.7 mg/dL (8.6-10.3); Carbon Dioxide 25 mEq/L (23-29); Chloride 101 mEq/L (98-107); Glucose 116 mg/dL (70-105); Osmolality,Calculated 277 (280-300); Potassium 3.7 mEq/L (3.5-5.1); Sodium 133 mEq/L (136-145); eGFR For African Americans > 60 (> 60); eGFR For Non-African Americans > 60 (> 60)
[2019-06-09 06:07] LABS: Chol/HDL Ratio 2.5 (0-4.9)
[2019-06-09] MEDS: Cyanocobalamin (B-12) 1,000 MCG TABLET PO SCH (08:22)
[2019-06-09] MEDS: Sucralfate 1 GM TABLET PO SCH ×4 (08:22→20:24)
[2019-06-09] MEDS: Carbidopa/Levodopa ER 50/200 TABLET PO SCH ×2 (08:22→20:24)
[2019-06-09] MEDS: Folic Acid 1 MG TABLET PO SCH (08:22)
[2019-06-09] MEDS: Vitamin B Complex/Vit C/Vit E 1 EACH TABLET PO SCH (08:26)
[2019-06-09] MEDS: Thiamine (B-1) 100 MG TABLET PO SCH (08:26)
[2019-06-09] MEDS: Aspirin 81 MG TAB.CHEW PO SCH (08:27)
[2019-06-09] MEDS ORDERED: GI Cocktail 40 ML EACH PO ONE ×2 (15:16→17:45)
[2019-06-09] MEDS: amLODIPine 5 MG TABLET PO SCH (16:37)
[2019-06-09] MEDS: Pantoprazole 40 MG VIAL IVP SCH (16:37)
[2019-06-09] MEDS: predniSONE 20 MG TABLET PO SCH (16:37)
[2019-06-09] MEDS: Thiamine (B-1) 100 MG, Folic Acid 1 MG, MVI, adult with vitamin K 10 ML in 0.9 % Sodi... IVPB SCH (16:38)
[2019-06-09] MEDS: cefTRIAXone 1,000 MG in Water for inj. (sterile) 10 ML IVP SCH (16:38)
[2019-06-10] MEDS: Azithromycin 500 MG in 0.9 % Sodium Chloride 250 ML IVPB SCH (01:29)
[2019-06-10 02:32] LABS: Basophils % 0.1 %; Hematocrit 41.2 % (37.5-50.1); Immature Granulocytes % 0.5 % (0-4); Lymphocytes # 0.9 K/mcL (0.6-4.6); Lymphocytes % 11.5 %; Mean Corpuscular Hemoglobin 32.6 pg (28.0-33.3); Mean Corpuscular Volume 95.8 fL (83.0-100.0); Mean Platelet Volume 10.6 fL (9.4-12.4); Monocytes # 0.2 K/mcL (0.0-1.3); Monocytes % 2.3 %; Neutrophils # 6.6 K/mcL (1.6-8.9); Platelet Count 222 K/mcL (140-400); Red Cell Distribution Width 13.1 % (11.5-14.5); Segmented Neutrophils % 85.6 %; White Blood Count 7.8 K/mcL (4.3-11.1)
[2019-06-10 03:02] LABS: BUN/Creatinine Ratio 14 (6-26); Blood Urea Nitrogen 11 mg/dL (6-20); Calcium 8.8 mg/dL (8.6-10.3); Carbon Dioxide 25 mEq/L (23-29); Chloride 99 mEq/L (98-107); Glucose 131 mg/dL (70-105); Osmolality,Calculated 277 (280-300); Potassium 4.1 mEq/L (3.5-5.1); Sodium 133 mEq/L (136-145); eGFR For African Americans > 60 (> 60); eGFR For Non-African Americans > 60 (> 60)
[2019-06-10] MEDS: Levalbuterol Neb 0.63 MG/3 ML IH SCH ×4 (03:33→22:35)
[2019-06-10] MEDS: Folic Acid 1 MG TABLET PO SCH (07:37)
[2019-06-10] MEDS: Carbidopa/Levodopa ER 50/200 TABLET PO SCH ×2 (07:37→20:24)
[2019-06-10] MEDS: Cyanocobalamin (B-12) 1,000 MCG TABLET PO SCH (07:38)
[2019-06-10] MEDS: Pantoprazole 40 MG VIAL IVP SCH (07:38)
[2019-06-10] MEDS: amLODIPine 5 MG TABLET PO SCH (07:38)
[2019-06-10] MEDS: Vitamin B Complex/Vit C/Vit E 1 EACH TABLET PO SCH (07:38)
[2019-06-10] MEDS: Thiamine (B-1) 100 MG TABLET PO SCH (07:38)
[2019-06-10] MEDS: Sucralfate 1 GM TABLET PO SCH ×4 (07:38→20:24)
[2019-06-10] MEDS: Aspirin 81 MG TAB.CHEW PO SCH (07:38)
[2019-06-10] MEDS: predniSONE 20 MG TABLET PO SCH (07:38)
[2019-06-10] MEDS: Heparin 25,000 UNIT/250 ML D5W 25,000 UNIT/250 ML IV.SOLN IVC SCH (08:32)
[2019-06-10] MEDS: Isosorbide MONOnitrate (24 HR) 30 MG TAB.ER.24H PO SCH (12:21)
[2019-06-10] MEDS: Acetylcysteine 10% 2 ML INHSOL IH SCH ×2 (14:10→22:35)
[2019-06-10] MEDS: cefTRIAXone 1,000 MG in Water for inj. (sterile) 10 ML IVP SCH (16:29)
[2019-06-10] MEDS: Thiamine (B-1) 100 MG, Folic Acid 1 MG, MVI, adult with vitamin K 10 ML in 0.9 % Sodi... IVPB SCH (16:29)
[2019-06-11] MEDS: Azithromycin 500 MG in 0.9 % Sodium Chloride 250 ML IVPB SCH (03:09)
[2019-06-11] MEDS: Levalbuterol Neb 0.63 MG/3 ML IH SCH ×4 (04:07→22:29)
[2019-06-11] MEDS: Acetylcysteine 10% 2 ML INHSOL IH SCH ×4 (04:08→22:29)
[2019-06-11] MEDS: Heparin 25,000 UNIT/250 ML D5W 25,000 UNIT/250 ML IV.SOLN IVC SCH ×2 (05:31→13:23)
[2019-06-11] MEDS: predniSONE 20 MG TABLET PO SCH (09:20)
[2019-06-11] MEDS: Isosorbide MONOnitrate (24 HR) 30 MG TAB.ER.24H PO SCH (09:21)
[2019-06-11] MEDS: Aspirin 81 MG TAB.CHEW PO SCH (09:21)
[2019-06-11] MEDS: Thiamine (B-1) 100 MG TABLET PO SCH (09:21)
[2019-06-11] MEDS: Folic Acid 1 MG TABLET PO SCH (09:21)
[2019-06-11] MEDS: Sucralfate 1 GM TABLET PO SCH ×4 (09:21→21:21)
[2019-06-11] MEDS: Cyanocobalamin (B-12) 1,000 MCG TABLET PO SCH (09:21)
[2019-06-11] MEDS: amLODIPine 5 MG TABLET PO SCH (09:21)
[2019-06-11] MEDS: Pantoprazole 40 MG VIAL IVP SCH (09:23)
[2019-06-11] MEDS: Vitamin B Complex/Vit C/Vit E 1 EACH TABLET PO SCH (09:24)
[2019-06-11] MEDS: Menthol 9.1 MG LOZENGE PO PRN (09:32)
[2019-06-11] MEDS: Carbidopa/Levodopa ER 50/200 TABLET PO SCH ×2 (09:32→21:21)
[2019-06-11] MEDS: cefTRIAXone 1,000 MG in Water for inj. (sterile) 10 ML IVP SCH (17:31)
[2019-06-12] MEDS: Azithromycin 500 MG in 0.9 % Sodium Chloride 250 ML IVPB SCH (02:36)
[2019-06-12] MEDS: Acetylcysteine 10% 2 ML INHSOL IH SCH ×4 (03:21→22:13)
[2019-06-12] MEDS: Levalbuterol Neb 0.63 MG/3 ML IH SCH ×4 (03:21→22:13)
[2019-06-12] MEDS: Isosorbide MONOnitrate (24 HR) 30 MG TAB.ER.24H PO SCH (09:21)
[2019-06-12] MEDS: predniSONE 20 MG TABLET PO SCH (09:22)
[2019-06-12] MEDS: Carbidopa/Levodopa ER 50/200 TABLET PO SCH ×2 (09:22→19:31)
[2019-06-12] MEDS: Aspirin 81 MG TAB.CHEW PO SCH (09:22)
[2019-06-12] MEDS: Sucralfate 1 GM TABLET PO SCH ×4 (09:22→19:31)
[2019-06-12] MEDS: Vitamin B Complex/Vit C/Vit E 1 EACH TABLET PO SCH (09:22)
[2019-06-12] MEDS: amLODIPine 5 MG TABLET PO SCH (09:23)
[2019-06-12] MEDS: Folic Acid 1 MG TABLET PO SCH (09:23)
[2019-06-12] MEDS: Thiamine (B-1) 100 MG TABLET PO SCH (09:23)
[2019-06-12] MEDS: Cyanocobalamin (B-12) 1,000 MCG TABLET PO SCH (09:23)
[2019-06-12] MEDS: Pantoprazole 40 MG VIAL IVP SCH (09:23)
[2019-06-12] MEDS: Heparin 25,000 UNIT/250 ML D5W 25,000 UNIT/250 ML IV.SOLN IVC SCH (17:53)
[2019-06-12] MEDS: Menthol 9.1 MG LOZENGE PO PRN (20:49)
[2019-06-12] MEDS: Benzonatate 100 MG CAPSULE PO PRN (20:49)
[2019-06-13 02:41] LABS: Basophils # 0.1 K/mcL (0.0-0.2); Basophils % 0.4 %; Hematocrit 37.1 % (37.5-50.1); Hemoglobin 12.8 g/dL (12.9-16.9); Immature Granulocytes % 2.5 % (0-4); Lymphocytes # 2.7 K/mcL (0.6-4.6); Mean Corpuscular HGB Conc 34.5 g/dL (31.6-35.5); Mean Corpuscular Hemoglobin 32.7 pg (28.0-33.3); Mean Corpuscular Volume 94.6 fL (83.0-100.0); Monocytes # 1.1 K/mcL (0.0-1.3); Monocytes % 6.8 %; Neutrophils # 11.6 K/mcL (1.6-8.9); Platelet Count 273 K/mcL (140-400); Red Blood Count 3.92 M/mcL (4.19-5.50); Red Cell Distribution Width 12.7 % (11.5-14.5); Segmented Neutrophils % 73.3 %
[2019-06-13 02:48] LABS: White Blood Count 15.8 K/mcL (4.3-11.1)
[2019-06-13 03:00] LABS: BUN/Creatinine Ratio 19 (6-26); Blood Urea Nitrogen 18 mg/dL (6-20); Calcium 8.7 mg/dL (8.6-10.3); Carbon Dioxide 22 mEq/L (23-29); Chloride 100 mEq/L (98-107); Glucose 122 mg/dL (70-105); Osmolality,Calculated 277 (280-300); Potassium 3.5 mEq/L (3.5-5.1); Sodium 132 mEq/L (136-145); eGFR For African Americans > 60 (> 60); eGFR For Non-African Americans > 60 (> 60)
[2019-06-13] MEDS: Levalbuterol Neb 0.63 MG/3 ML IH SCH ×4 (03:38→21:38)
[2019-06-13] MEDS: Acetylcysteine 10% 2 ML INHSOL IH SCH ×4 (03:38→21:38)
[2019-06-13] MEDS: Pantoprazole 40 MG VIAL IVP SCH (09:09)
[2019-06-13] MEDS: Folic Acid 1 MG TABLET PO SCH (09:10)
[2019-06-13] MEDS: Vitamin B Complex/Vit C/Vit E 1 EACH TABLET PO SCH (09:10)
[2019-06-13] MEDS: Thiamine (B-1) 100 MG TABLET PO SCH (09:10)
[2019-06-13] MEDS: predniSONE 20 MG TABLET PO SCH (09:10)
[2019-06-13] MEDS: amLODIPine 5 MG TABLET PO SCH (09:11)
[2019-06-13] MEDS: Carbidopa/Levodopa ER 50/200 TABLET PO SCH ×2 (09:11→20:55)
[2019-06-13] MEDS: Cyanocobalamin (B-12) 1,000 MCG TABLET PO SCH (09:11)
[2019-06-13] MEDS: Isosorbide MONOnitrate (24 HR) 30 MG TAB.ER.24H PO SCH (10:00)
[2019-06-13] MEDS ORDERED: *HR* FentaNYL (PF) 100 MCG/2 ML VIAL ONE (14:13)
[2019-06-13] MEDS ORDERED: *HR* Midazolam HCl 2 MG/2 ML VIAL ONE (14:13)
[2019-06-13] MEDS ORDERED: *HR* Heparin 10,000 UNIT/10 ML VIAL ONE (14:14)
[2019-06-13] MEDS ORDERED: 0.9 % Sodium Chloride 1,000 ML ONE (14:14)
[2019-06-13] MEDS ORDERED: ISOVUE-370 200 ML INFUS..BTL ONE (14:14)
[2019-06-13] MEDS ORDERED: Heparin 1,000 UNITS/500 mL 500 ML ONE (14:14)
[2019-06-13] MEDS ORDERED: Nitroglycerin 1,000 MCG/10 ML VIAL IV ONE (14:14)
[2019-06-13] MEDS: Aspirin 81 MG TAB.CHEW PO SCH (14:59)
[2019-06-13] MEDS: Sucralfate 1 GM TABLET PO SCH ×3 (14:59→20:55)
[2019-06-13] MEDS ORDERED: Verapamil 5 MG/2 ML VIAL ONE (15:25)
[2019-06-13] MEDS ORDERED: *HR* Ticagrelor 90 MG TABLET ONE (15:50)
[2019-06-13] MEDS ORDERED: Tirofiban 12.5 MG/250ML 12.5 MG/250 ML BAG ONE (16:00)
[2019-06-13] MEDS ORDERED: Ondansetron 4 MG/2 ML VIAL IVP PRN (16:03)
[2019-06-13] MEDS ORDERED: Acetaminophen 325 MG TABLET PO PRN (16:03)
[2019-06-13] MEDS ORDERED: Tirofiban 12.5 MG/250ML 12.5 MG/250 ML BAG IVC SCH (16:15)
[2019-06-13] MEDS: *HR* Ticagrelor 90 MG TABLET PO SCH (20:56)
[2019-06-14] MEDS: Levalbuterol Neb 0.63 MG/3 ML IH SCH ×2 (04:30→09:32)
[2019-06-14] MEDS: Acetylcysteine 10% 2 ML INHSOL IH SCH ×2 (04:30→09:32)
[2019-06-14 07:32] LABS: Basophils # 0.1 K/mcL (0.0-0.2); Basophils % 0.8 %; Eosinophils % 0.1 %; Hematocrit 41.4 % (37.5-50.1); Immature Granulocytes % 4.9 % (0-4); Lymphocytes # 2.6 K/mcL (0.6-4.6); Mean Corpuscular HGB Conc 34.8 g/dL (31.6-35.5); Mean Corpuscular Hemoglobin 32.7 pg (28.0-33.3); Mean Corpuscular Volume 93.9 fL (83.0-100.0); Mean Platelet Volume 10.2 fL (9.4-12.4); Monocytes # 1.2 K/mcL (0.0-1.3); Monocytes % 7.7 %; Neutrophils # 10.7 K/mcL (1.6-8.9); Platelet Count 303 K/mcL (140-400); Red Blood Count 4.41 M/mcL (4.19-5.50); Segmented Neutrophils % 69.5 %; White Blood Count 15.4 K/mcL (4.3-11.1)
[2019-06-14 07:38] LABS: Hemoglobin 14.4 g/dL (12.9-16.9)
[2019-06-14 07:45] LABS: BUN/Creatinine Ratio 19 (6-26); Blood Urea Nitrogen 14 mg/dL (6-20); Calcium 8.8 mg/dL (8.6-10.3); Carbon Dioxide 25 mEq/L (23-29); Chloride 100 mEq/L (98-107); Glucose 100 mg/dL (70-105); Osmolality,Calculated 275 (280-300); Potassium 3.3 mEq/L (3.5-5.1); Sodium 132 mEq/L (136-145); eGFR For African Americans > 60 (> 60); eGFR For Non-African Americans > 60 (> 60)
[2019-06-14] MEDS: Sucralfate 1 GM TABLET PO SCH (07:45)
[2019-06-14] MEDS: amLODIPine 5 MG TABLET PO SCH (07:45)
[2019-06-14] MEDS: Isosorbide MONOnitrate (24 HR) 30 MG TAB.ER.24H PO SCH (07:45)
[2019-06-14] MEDS: *HR* Ticagrelor 90 MG TABLET PO SCH (07:45)
[2019-06-14] MEDS: Carbidopa/Levodopa ER 50/200 TABLET PO SCH (07:45)
[2019-06-14] MEDS: Folic Acid 1 MG TABLET PO SCH (07:45)
[2019-06-14] MEDS: Thiamine (B-1) 100 MG TABLET PO SCH (07:45)
[2019-06-14] MEDS: Aspirin 81 MG TAB.CHEW PO SCH (07:45)
[2019-06-14] MEDS: Pantoprazole 40 MG VIAL IVP SCH (07:46)
[2019-06-14] MEDS: Vitamin B Complex/Vit C/Vit E 1 EACH TABLET PO SCH (07:46)
[2019-06-14] MEDS: Cyanocobalamin (B-12) 1,000 MCG TABLET PO SCH (07:46)
[2019-06-14] MEDS ORDERED: ALPRAZolam 0.25 MG TABLET PO ONE (07:59)
[2019-06-14] MEDS ORDERED: predniSONE 20 MG TABLET PO SCH (09:00)
[2019-06-14 11:08] VITALS: BP 124/71
== END 2019-06-14 12:46 | DRG 174 ==
LOC: 3BNU 18:32 → EMEROOARM 18:32 → 3BNU 06-08 00:01
PROVIDERS: ADMIT Family Medicine; ATTEND Family Medicine

== ENCOUNTER 2019-07-16 16:37 | Observation (INO) ==
[2019-07-16] MEDS ORDERED: Ipratropium/Albuterol Neb 3 ML IH ONE (17:01)
[2019-07-16 17:45] LABS: Basophils % 0.3 %; Eosinophils # 0.4 K/mcL (0.0-0.6); Eosinophils % 3.4 %; Hematocrit 42.2 % (37.5-50.1); Hemoglobin 13.8 g/dL (12.9-16.9); Immature Granulocytes % 0.7 % (0-4); Lymphocytes # 2.3 K/mcL (0.6-4.6); Lymphocytes % 22.2 %; Mean Corpuscular HGB Conc 32.7 g/dL (31.6-35.5); Mean Corpuscular Hemoglobin 32.1 pg (28.0-33.3); Mean Corpuscular Volume 98.1 fL (83.0-100.0); Monocytes # 0.7 K/mcL (0.0-1.3); Monocytes % 7.1 %; Neutrophils # 6.8 K/mcL (1.6-8.9); Platelet Count 349 K/mcL (140-400); Red Cell Distribution Width 13.5 % (11.5-14.5); Segmented Neutrophils % 66.3 %; White Blood Count 10.3 K/mcL (4.3-11.1)
[2019-07-16 18:09] LABS: Alanine Aminotransferase 12 Units/L (7-52); Albumin/Globulin Ratio 1.4 (1.1-2.2); Alkaline Phosphatase 97 Units/L (34-104); Aspartate Amino Transferase 25 Units/L (13-39); BUN/Creatinine Ratio 6 (6-26); Bilirubin,Total 0.5 mg/dL (0.3-1.0); Blood Urea Nitrogen 5 mg/dL (6-20); Calcium 9.3 mg/dL (8.6-10.3); Carbon Dioxide 24 mEq/L (23-29); Chloride 100 mEq/L (98-107); Ethanol 27 mg/dL (Less than 10); Globulin 2.9 g/dL (2.4-3.5); Glucose 84 mg/dL (70-105); Osmolality,Calculated 272 (280-300); Potassium 4.4 mEq/L (3.5-5.1); Sodium 133 mEq/L (136-145); Total Protein 6.9 g/dL (6.4-8.9); eGFR For African Americans > 60 (> 60); eGFR For Non-African Americans > 60 (> 60)
[2019-07-16 18:10] LABS: Troponin I < 0.03 ng/mL (< 0.04)
[2019-07-16] MEDS ORDERED: Naloxone 0.4 MG/ML INJ IVP PRN (19:56)
[2019-07-16] MEDS ORDERED: *HR* LORazepam 1 MG TABLET PO SCH (20:45)
[2019-07-16] MEDS ORDERED: Saline Nasal Spray 44 ML BOTTLE NS PRN (21:11)
[2019-07-16] MEDS: Acetylcysteine 10% 2 ML INHSOL IH SCH (22:30)
[2019-07-17] MEDS ORDERED: Carbidopa/Levodopa 25/100 TABLET PO ONE (00:51)
[2019-07-17] MEDS: hydrOXYzine pamoate 25 MG CAPSULE PO PRN (01:23)
[2019-07-17] MEDS ORDERED: *HR* LORazepam 2 MG/ML VIAL IVP PRN (01:40)
[2019-07-17] MEDS: Acetylcysteine 10% 2 ML INHSOL IH SCH ×4 (03:50→20:52)
[2019-07-17 04:24] LABS: Basophils % 0.2 %; Eosinophils # 0.4 K/mcL (0.0-0.6); Eosinophils % 4.3 %; Hematocrit 40.8 % (37.5-50.1); Hemoglobin 13.1 g/dL (12.9-16.9); Immature Granulocytes % 0.5 % (0-4); Lymphocytes # 1.8 K/mcL (0.6-4.6); Lymphocytes % 20.1 %; Mean Corpuscular HGB Conc 32.1 g/dL (31.6-35.5); Mean Corpuscular Volume 99.5 fL (83.0-100.0); Mean Platelet Volume 10.4 fL (9.4-12.4); Monocytes # 0.8 K/mcL (0.0-1.3); Monocytes % 9.5 %; Neutrophils # 5.8 K/mcL (1.6-8.9); Platelet Count 292 K/mcL (140-400); Red Cell Distribution Width 13.4 % (11.5-14.5); Segmented Neutrophils % 65.4 %; White Blood Count 8.8 K/mcL (4.3-11.1)
[2019-07-17 04:42] LABS: BUN/Creatinine Ratio 11 (6-26); Blood Urea Nitrogen 9 mg/dL (6-20); Calcium 8.9 mg/dL (8.6-10.3); Carbon Dioxide 23 mEq/L (23-29); Chloride 104 mEq/L (98-107); Glucose 101 mg/dL (70-105); Osmolality,Calculated 279 (280-300); Sodium 135 mEq/L (136-145); eGFR For African Americans > 60 (> 60); eGFR For Non-African Americans > 60 (> 60)
[2019-07-17] MEDS: Vitamin B Complex/Vit C/Vit E 1 EACH TABLET PO SCH (10:28)
[2019-07-17] MEDS: Thiamine (B-1) 100 MG TABLET PO SCH (10:28)
[2019-07-17] MEDS: Carbidopa/Levodopa 25/100 TABLET PO SCH ×2 (10:28→20:22)
[2019-07-17] MEDS: Cyanocobalamin (B-12) 1,000 MCG TABLET PO SCH (10:28)
[2019-07-17] MEDS: Folic Acid 1 MG TABLET PO SCH (10:29)
[2019-07-17] MEDS: Sucralfate 1 GM TABLET PO SCH ×4 (10:29→20:22)
[2019-07-17] MEDS: Aspirin 81 MG TAB.CHEW PO SCH (10:29)
[2019-07-17] MEDS: Isosorbide MONOnitrate (24 HR) 30 MG TAB.ER.24H PO SCH (10:29)
[2019-07-17] MEDS: *HR* Ticagrelor 90 MG TABLET PO SCH ×2 (10:29→20:21)
[2019-07-17] MEDS ORDERED: Furosemide 20 MG/2 ML VIAL IVP ONE (11:34)
[2019-07-17] MEDS ORDERED: Ondansetron 4 MG/2 ML VIAL IVP PRN (14:12)
[2019-07-17] MEDS ORDERED: Furosemide 40 MG/4 ML VIAL IVP ONE (15:52)
[2019-07-17] MEDS: *HR* LORazepam 2 MG/ML VIAL IVP PRN (20:27)
[2019-07-17] MEDS: Nicotine 14 MG PATCH.TD24 TD SCH (22:34)
[2019-07-18] MEDS: Acetylcysteine 10% 2 ML INHSOL IH SCH ×5 (03:46→21:55)
[2019-07-18] MEDS: Thiamine (B-1) 100 MG TABLET PO SCH (10:35)
[2019-07-18] MEDS: Isosorbide MONOnitrate (24 HR) 30 MG TAB.ER.24H PO SCH (10:35)
[2019-07-18] MEDS: Folic Acid 1 MG TABLET PO SCH (10:35)
[2019-07-18] MEDS: Sucralfate 1 GM TABLET PO SCH ×4 (10:35→21:25)
[2019-07-18] MEDS: Aspirin 81 MG TAB.CHEW PO SCH (10:35)
[2019-07-18] MEDS: *HR* Ticagrelor 90 MG TABLET PO SCH ×2 (10:35→21:26)
[2019-07-18] MEDS: Cyanocobalamin (B-12) 1,000 MCG TABLET PO SCH (10:36)
[2019-07-18] MEDS: Vitamin B Complex/Vit C/Vit E 1 EACH TABLET PO SCH (10:36)
[2019-07-18] MEDS: Carbidopa/Levodopa 25/100 TABLET PO SCH ×2 (10:36→21:26)
[2019-07-18] MEDS: hydrOXYzine pamoate 25 MG CAPSULE PO PRN (10:51)
[2019-07-18] MEDS: Ipratropium/Albuterol Neb 3 ML IH PRN ×3 (12:00→21:55)
[2019-07-18] MEDS: *HR* LORazepam 2 MG/ML VIAL IVP PRN (15:15)
[2019-07-18] MEDS: Nicotine 14 MG PATCH.TD24 TD SCH (23:49)
[2019-07-19] MEDS: Acetylcysteine 10% 2 ML INHSOL IH SCH ×2 (03:40→10:37)
[2019-07-19] MEDS: Ipratropium/Albuterol Neb 3 ML IH PRN ×2 (03:40→10:37)
[2019-07-19] MEDS ORDERED: Regadenoson 0.4 MG/5 ML SYRINGE IVP ONE (06:38)
[2019-07-19] MEDS ORDERED: Furosemide 20 MG TABLET PO SCH (09:00)
[2019-07-19] MEDS: Sucralfate 1 GM TABLET PO SCH ×2 (09:24→13:24)
[2019-07-19] MEDS: Thiamine (B-1) 100 MG TABLET PO SCH (09:24)
[2019-07-19] MEDS: Aspirin 81 MG TAB.CHEW PO SCH (09:24)
[2019-07-19] MEDS: Vitamin B Complex/Vit C/Vit E 1 EACH TABLET PO SCH (09:24)
[2019-07-19] MEDS: *HR* Ticagrelor 90 MG TABLET PO SCH (09:24)
[2019-07-19] MEDS: Carbidopa/Levodopa 25/100 TABLET PO SCH (09:25)
[2019-07-19] MEDS: Folic Acid 1 MG TABLET PO SCH (09:25)
[2019-07-19] MEDS: Isosorbide MONOnitrate (24 HR) 30 MG TAB.ER.24H PO SCH (09:25)
[2019-07-19] MEDS: Cyanocobalamin (B-12) 1,000 MCG TABLET PO SCH (09:25)
[2019-07-19 15:37] VITALS: BP 112/68
[2019-07-19] MEDS: hydrOXYzine pamoate 25 MG CAPSULE PO PRN (17:05)
== END 2019-07-19 18:09 ==
LOC: EMEROOARM 16:37 → 3BNU 16:37 → SUATTDRO 19:24 → 3BNU 20:36
PROVIDERS: ADMIT Internal Medicine; ATTEND Student in an Organized Health Care Education/Training Program